=== PATIENT | female | born 1990 | race Caucasian/White ===

== ENCOUNTER → 2017-11-14 17:37 | Outpatient (REF) | payer BC, SELFPAY ==
[2017-11-14 19:56] LABS: Bilirubin Negative (Negative); Blood Negative (Negative); Clarity Clear; Glucose Negative (Negative); Ketones Negative (Negative); Leukocyte Esterase Negative (Negative); Nitrite Negative (Negative); Urobilinogen 0.2 EU/dL (Up TO 0.2)
[2017-11-14 21:09] LABS: Bacteria Negative HPF (Negative); C & S Indicated? No; Casts Negative LPF (Negative); Crystals Negative HPF (Negative); Epithelial Cells Few HPF (Negative); Mucus Negative (Negative); Other Cells Negative (Negative); RBC 0-2 (0-2); WBC 0-2 HPF (0-5)
== END ==
LOC: NCHCN 17:37
PROVIDERS: PCP Family Medicine; Visit Provider Family Medicine
DX: R30.9 Painful micturition, unspecified (principal)
CPT/HCPCS: 81003; 81015

== ENCOUNTER 2019-04-18 14:24 | Outpatient (CLI) | payer OTHER, BC, SELFPAY ==
--- NOTE | 2019-04-18 14:30 | DI.RAD_ITS ---
EXAM: XR TOE LT GREAT AND XR FOOT LT COMPLETE INDICATION: GREAT TOE PAIN M79.676. COMPARISON: No exams were available for comparison TECHNIQUE: 2D digital imaging was performed. FINDINGS: No fractures seen in the great toe or remainder of the foot. There are no findings to suggest a stre ss fracture. The joint spaces are well maintained. There is incidental spurring at the dorsal aspec t of the navicular. IMPRESSION: Negative left foot and left great toe.
[2019-04-18 15:37] LABS: HCT 34.1 % (36.0-46.0); HGB 11.1 g/dL (12.0-15.5); Mean Corp. HGB Concentration 32.6 g/dL (32.0-36.0); Mean Corpuscular Hemoglobin 26.4 pg (27.0-33.0); Mean Platelet Volume 10.5 fL (8.0-11.0); Platelet Count 232 x1000/uL (130-400); RBC 4.21 m/cumm (4.00-5.20); RBC Distribution Width 13.5 % (11.7-14.6); White Blood Cell Count 9.34 k/cumm (4.4-10.8)
[2019-04-18 15:49] LABS: C-Reactive Protein 9.01 mg/dL (0.0-0.3)
== END 2019-04-18 14:44 ==
PROVIDERS: PCP Family Medicine; Visit Provider Nurse Practitioner Family
DX: M79.672 Pain in left foot (principal); M79.675 Pain in left toe(s)
CPT/HCPCS: 36415; 85027; 73630; 73660; 84550; 86140

== ENCOUNTER 2019-06-04 01:25 | Outpatient (CLI) | payer OTHER, BC, SELFPAY ==
--- NOTE | 2019-06-04 | DI.MRI_ITS ---
EXAM: MR LOWER EXTREMITY LT WO CLINICAL HISTORY: PAIN AND SWELLING X 4 WEEKS, 1ST MPJ LT FOOT, TIBIAL SESAMOID FX,? Infection or go ut TECHNIQUE: Multiplanar multisequence MRI was performed. COMPARISON: XR TOE LT GREAT from 04/18/2019 FINDINGS: Bones: There is hyperintense signal on the T2 weighted images in the 1st metatarsal, the 1st proximal phalanx and both sesamoids. There is a bipartite medial sesamoid. The proximal pole is predominant ly low signal intensity. Joints: There is a large effusion at the 1st metatarsophalangeal joint. Tendons: Visualized tendons are intact. Soft tissues: No focal fluid collection is seen to suggest an abscess. There is edema seen in the so ft tissues around the great toe. There is mild edema in the adjacent muscles on the plantar surface of the toe. IMPRESSION: 1. Soft tissue edema and joint effusion at the 1st metatarsophalangeal joint. A septic joint cannot be excluded. 2. Marrow edema seen in the sesamoids, 1st metatarsal and proximal phalanx of the great toe, this may be reactive. Infection cannot be totally excluded. 3. Hypointense signal seen in the proximal pole of the bipartite medial sesamoid. Avascular necrosis cannot be excluded. DATA REPOSITORY:
== END 2019-06-04 01:45 ==
PROVIDERS: PCP Family Medicine; Visit Provider Podiatrist
DX: M79.672 Pain in left foot (principal); M79.89 Other specified soft tissue disorders; M25.472 Effusion, left ankle; R60.0 Localized edema
CPT/HCPCS: 85027; 86803; 87340; 87389; 73718; 82728; 82746; 84443; 84550

== ENCOUNTER 2019-09-23 08:26 | Outpatient (CLI) | payer BC, SELFPAY ==
[2019-09-26 02:10] LABS: SARS-CoV-2 RNA Undetected (Undetected); SARS-CoV-2 Specimen Source Nasopharynx
== END 2019-09-23 08:46 ==
PROVIDERS: PCP Family Medicine; Visit Provider Podiatrist
DX: Z11.59 Encounter for screening for other viral diseases (principal)
CPT/HCPCS: U0003

== ENCOUNTER 2019-09-26 08:38 | Day surgery (SDC) | payer OTHER, SELFPAY ==
--- NOTE | 2019-09-26 07:10 | HPE_ITS ---
Date of service: 09/26/19 Time of Service: 07:10 History of Present Illness History of Present Illness Chief Complaint: tibial sesamoid fracture, left Narrative: 29-year-old female who sustained a traumatic fracture of the left tibial sesamoid while at work. Nonoperative treatments have failed to resolve the current problem and she is being brought to the OR for exploration and removal of the tibial sesamoid left foot. [facility] Medical History Abnormal hepatitis serology (Acute) Acne vulgaris (Acute) Acute adjustment disorder with depressed mood (Acute) Anxiety with depression (Acute) Chronic interstitial cystitis Cocaine abuse (Acute) 2-3 years ago last use Depression Encounter for annual physical exam (Acute) Fatigue (Acute) Folic acid deficiency (Acute) Hand swelling (Acute) Hepatitis C (Chronic) Pt. denies having this, and has tried to get it taken off your record because she says she has never had it Irregular menses (Acute) Irritable bowel syndrome (Chronic) denies having this dx and would like it removed from her record Lack of libido (Acute) Migraine headache (Chronic) Opioid type dependence, abuse (Acute) Vasculitis (Acute) Surgical History Tonsillectomy Family History Other Diabetes Social History (Updated 09/10/19 @ 10:57 by Beverley Dugan RN) Smoking/Tobacco Use Status: Former Tobacco Use Quit Date: 04/02/17 Alcohol Intake: current Alcohol Intake frequency: holidays/special occasions only Alcohol type: wine Drug use: Current Sobriety Substance use type: crack/cocaine and opiates Details: states she has not used in 2-3 years Number of Children: 0 Current gender identity: female Do you feel safe at home: Yes Do you feel safe in your relationship?: Yes Meds Home Medications and Allergies Home Medications Medication Instructions Recorded Confirmed Type levonorgestrel-ethinyl estrad 1 ea PO DAILY #1 pack 05/19/13 09/23/19 History [Savanah] buprenorphine 8 mg-naloxone 2 mg 1 film SL DAILY 02/05/18 09/23/19 History sublingual film lactobacillus combination no.4 3 3,000 mmu cells PO DAILY 02/05/18 09/23/19 History billion cell capsule phenazopyridine 200 mg tablet 200 mg PO TID 02/05/18 09/23/19 History doxycycline hyclate 20 mg tablet 20 mg PO DAILY tab 09/10/19 09/23/19 History eletriptan [Relpax] 40 mg PO PRN PRN 09/23/19 09/23/19 History Allergies Allergy/AdvReac Type Severity Reaction Status Date / Time No Known Drug Allergies Allergy Verified 09/23/19 14:48 Exam Narrative Exam Narrative: Head is normocephalic Eyes PERRLA Hearing is adequate Uvular is midline, airway looks assessable Heart had regular rate and rhythm without gallops rubs or murmurs appreciated Lung christopher were clear Abdomen was soft, bowel sounds x4, obese Peripheral pulses are manually palpable at the ankles graded 2 out of 4 bilaterally. Capillary refills under 3 seconds to all toes. Muscle groups 5 out of 5 bilaterally Skeletal exam is remarkable for pain with palpation tibial sesamoid left first MPJ. Neurological exam she appeared grossly intact Impression: Left tibial sesamoid disruption Plan:? Being brought to the OR for exploration and resection of the tibial sesamoid left foot. Risk and complications have been disclosed including the potential for pain, scarring, infection, hallux valgus creation due to the imbalance having remove the tibial sesamoid, floating of the great toe, and lack of great toe purchase. The potential for ongoing discomfort as well as reactions such as regional complex pain syndrome. No guarantees have been provided, all questions have been answered in detail. Informed consent has been obtained. COVID-19 Screening In the past 14 days, have you traveled outside of [place]?: NO
[2019-09-26 08:51] VITALS: BP 124/72; PULSE 84; RESP 18; TEMP 36.6; O2SAT 100
--- NOTE | 2019-09-26 09:02 | NUR.NOTE ---
Nursing Note: Pt. currently on suboxone. Pt. reporting she would like opiates for post surgical pain mgmt and had discussed it with outpatient provider. Pt. signed opiate consent. Pt. directed to discuss with Dr. Bauer.
[2019-09-26] MEDS: Midazolam/Ketamine/Ondansetron (3/25/2MG) 1 TAB 1 EACH SL (09:50)
[2019-09-26] MEDS: ceFAZolin 1,000 MG VIAL 2000 MG IM (13:22)
[2019-09-26] MEDS: Bupivacaine 0.5% Pres-Free 30 ML VIAL (13:29)
--- NOTE | 2019-09-26 13:40 | NUR.NOTE ---
Nursing Note: IV access not successful utilizing US and anesthesia team. Ancef 2gms given IM per MD Bauer. IM Ancef to left glute. Pt. tolerated procedure well AEB talking w/this RN. APPRENTICE INSTRUMENT TECHNICIAN wheeled Pt. to OR.
[2019-09-26] MEDS: ceFAZolin 1,000 MG VIAL 1000 MG (13:47)
--- NOTE | 2019-09-26 14:00 | BONE_PTH ---
PATIENT: Julisa Mayo LOC: [facility] U#:[id number] AGE/SX: 29/F ROOM: RE09/26/[address]: Maxim Bauer : 1990 BED: DIS: 09/26/2019 SPEC #: [id number] RECD: 09/26/19 16:50 STATUS: THERON RERodrigo #: [id number] GRACIELA: 09/26/19 14:[address]: Maxim Bauer DEPT: Surgical Specimen RECD BY: Karla Talbert ENTERED: 09/26/19 16:51 SP TYPE: Bone OTHR DR: Marcai Hogan Tissues: 1 - BONE BX/CURRETTE NOT PATH FRACTURE Procedures: GROSS AND MICRO LEVEL 3 DECALCIFICATION Comments: [id number]
--- NOTE | 2019-09-26 14:15 | DI.RAD_ITS ---
EXAM: XR FOOT LT COMPLETE CLINICAL HISTORY: LEFT SESAMOID COMPARISON: No exams were available for comparison FINDINGS: C-arm fluoroscopy was utilized by Dr. Bauer. Please see Dr. Bauer's procedure note. Fluoro time, 3.1 seconds. IMPRESSION:
--- NOTE | 2019-09-26 15:04 | W.PM.DSUDISC ---
Discharge Plan Disposition Patient Disposition: HOME Condition: Good Discharge Details Reason For Visit: Exploration, excision tibial sesamoid left foot Attending Provider: Maxim Bauer Primary Care Provider: Marcia Hogan Home Meds and New Rx's Prescriptions: New ibuprofen 600 mg tablet 600 mg PO QID Qty: 60 RF: 1 hydrocodone-acetaminophen [Ventura] 5-325 mg tablet 1 tab PO Q6H PRNQty: 7 RF: 0 Continued phenazopyridine 200 mg tablet 200 mg PO TID RF: 0 buprenorphine-naloxone [Suboxone] 8-2 mg film 1 film SL DAILY RF: 0 doxycycline hyclate 20 mg tablet 20 mg PO DAILY RF: 0 levonorgestrel-ethinyl estrad [Savanah 28] 1 EACH tablet 1 ea PO DAILY Qty: 1 RF: 12 eletriptan [Relpax] 40 mg tablet 40 mg PO PRN PRNRF: 0 Discharge Instructions Activity:: Elevate Remove Dressings/Wound Care:: Do Not Remove Shower/Bathe:: Cover Diet:: Normal Diet Discharge Orders Discharge Orders: Discharge Order (Routine); Ordered 09/26/19 Ordered By: Maxim Bauer DS: Diagnosis Discharge Diagnosis (1) Fracture of sesamoid bone of foot, closed: Status: Acute
--- NOTE | 2019-09-26 15:08 | ROE_ITS ---
Date of service: 09/26/19 Time of Service: 15:08 Operative Note Operative Note DATE OF PROCEDURE: 09/26/19 PRE-OP DIAGNOSIS: Tibial sesamoid fracture left foot POST-OP DIAGNOSIS: same PROCEDURE: Exploration with tibial sesamoidectomy left foot SURGEON: Maxim Bauer ANESTHESIA: local ESTIMATED BLOOD LOSS: 5 PATHOLOGY: other COMPLICATIONS: None Patient was transported to: same day Patient's condition: stable Indications: 29-year-old female with work-related injury to the tibial sesamoid left foot which failed to respond to nonoperative measures. Julisa is being brought to the OR for exploration and excision of the fractured sesamoid. She understands risk and complications of surgery pertaining to pain, scarring, infection, hallux valgus formation due to the surgical absence of the tibial sesamoid, ongoing pain potentially regional complex syndrome formation. All questions have been answered informed consents been obtained no promises made to the final outcome of surgery. Procedure Description: Julisa is brought to the operative suite placed in the supine position with a left foot prepped and draped in the usual sterile podiatric fashion. Timeout was performed in standard fashion. Local anesthesia was utilized to afford a first ray block starting with 10 cc of a 50: 50 mixture, 1% lidocaine with epinephrine, 0.5% Marcaine plain. She was subsequently augmented with an additional 10 cc of the same mixture. Excellent anesthesia was obtained. A 3 cm incision was placed at the thin thick skin mar gin along the medial aspect of her left first MPJ. The incision was deepened in controlled depth fashion with hemostasis acquired through electrocautery. Dissection was carried down to the joint capsule. With finger palpation I was able to palpate the joint capsule medially as well as the tibial sesamoid. Inspection at this level failed to reveal any pathology there was no instability at the first MPJ with range of motion distraction. With a #15 scalpel I opened the joint capsule medially just above the palpable sesamoid. Was a fair amount of synovial type fluid that came from this region upon incision and cultures both anaerobic and anaerobic were obtained. The fluid did not look purulent but did appear somewhat inflamed. A section was further performed opening the joint capsule and the sesamoid appeared to be a little more distal than I would have expected this bony fragment was dissected free of the surrounding tissue and the underlying flexor tendon was intact. Patient was able to plantarflex and dorsiflex her toe anatomically. Based on previous radiographs I had expected to find a second fragment but I was unable to locate this fragment. I did take a Intra-Op x-ray and the fragment was not readily visible to me. Soft tissue exploration was performed and no additional pathologic findings were noted. The wound was copiously irrigated with normal saline. The joint capsule was closed meticulously with simple interrupted suture 3-0 Vicryl. The subcutaneous layer was repaired with simple interrupted suture 3-0 Vicryl. The skin was then coapted with a combination of horizontal and simple suture of 4-0 nylon. 4 mg of dexamethasone phosphate was infused deeply into the wound. Xeroform gauze fluff compression dressings were applied. Estimated blood loss was under 5 cc. Julisa left the OR with vital signs stable vascular status intact will be followed by myself in the office next week.
== END 2019-09-26 15:40 | disposition home or self-care (01) ==
PROVIDERS: PCP Family Medicine; Visit Provider Podiatrist
PROC: (CPT 28315; principal; 2019-09-26 10:45)
DX: S92.812A Other fracture of left foot, initial encounter for closed fracture (principal); X58.XXXA Exposure to other specified factors, initial encounter; Y99.0 Civilian activity done for income or pay
CPT/HCPCS: 28315; 87077; NC; 73630; 87070; 87075; 87186; 87205; 88304; 88311; J0690; J2001

== ENCOUNTER 2019-11-26 19:10 | Outpatient (REF) | payer BC, SELFPAY ==
[2019-11-29 01:25] LABS: SARS-CoV-2 RNA Undetected (Undetected); SARS-CoV-2 Specimen Source Nasopharynx
== END 2019-11-26 19:30 ==
LOC: NCHCN 19:10
PROVIDERS: PCP Family Medicine; Visit Provider Nurse Practitioner Family
DX: Z20.828 Contact with and (suspected) exposure to other viral communicable diseases (principal)
CPT/HCPCS: U0003

== ENCOUNTER 2019-12-10 02:24 | Outpatient (CLI) | payer BC, SELFPAY ==
[2019-12-10 16:18] LABS: Estimated GFR 58.72 (mL/min/1.73m2); Potassium 4.2 mmol/L (3.5-5.1)
== END 2019-12-10 02:44 ==
PROVIDERS: PCP Family Medicine; Visit Provider Physician Assistant
DX: L70.8 Other acne (principal)
CPT/HCPCS: 36415; 85027; 86803; 87340; 87389; 82565; 82728; 82746; 84132; 84443; 84550

== ENCOUNTER 2019-12-24 17:47 | Outpatient (REF) | payer BC, SELFPAY ==
[2019-12-24 18:42] LABS: Anion Gap 12.3 mmol/L (3-11); BUN 14 mg/dL (7-18); CO2 21.7 mmol/L (21.0-32.0); Calcium 9.8 mg/dL (8.5-10.1); Chloride 101 mmol/L (98-107); Glucose 88 mg/dL (74-106); Potassium 4.5 mmol/L (3.5-5.1); Sodium 135 mmol/L (136-145); TSH (W/Ref FT4) 3.03 uIU/mL (0.36-3.74)
== END 2019-12-24 18:07 ==
LOC: NCHCN 17:47
PROVIDERS: PCP Family Medicine; Visit Provider Family Medicine
DX: R63.5 Abnormal weight gain (principal)
CPT/HCPCS: 80048; 84443

== ENCOUNTER 2020-04-05 18:14 | Outpatient (REF) | payer BC, SELFPAY ==
[2020-04-05 19:14] LABS: CREATININE 1.06 mg/dL (0.55-1.02); Ferritin 38 ng/mL (8-252)
== END 2020-04-05 18:34 ==
LOC: LBN 18:14
PROVIDERS: PCP Family Medicine; Visit Provider Physician Assistant
DX: L70.8 Other acne (principal); Z79.899 Other long term (current) drug therapy
CPT/HCPCS: 82565; 82728

== ENCOUNTER 2020-09-29 19:18 | Outpatient (REF) | payer BC, SELFPAY ==
[2020-09-29 20:38] LABS: HCT 36.1 % (36.0-46.0); HGB 11.7 g/dL (11.2-15.7); MCH 28.3 pg (27.0-33.0); MCHC 32.4 % (32.0-36.0); MCV 87.4 fL (80-95); MPV 12.7 fL (8.0-11.0); Platelet Count 270 10^3/uL (130-400); RBC 4.13 10^6/uL (3.93-5.22); RDW 12.3 % (11.7-14.6); RDW-SD 39.1 fL; WBC 7.79 10^3/uL (4.4-10.8)
[2020-09-29 21:26] LABS: Hemoglobin A1C 5.2 % (<5.7)
[2020-09-29 21:28] LABS: ALT 23 U/L (14-59); AST 12 U/L (15-37); Albumin 3.6 g/dL (3.4-5.0); Alkaline Phosphatase 99 U/L (46-116); Anion Gap 11.3 mmol/L (3-11); BUN 14 mg/dL (7-18); Bilirubin, Total 0.2 mg/dL (0.2-1.0); CO2 26.7 mmol/L (21.0-32.0); CREATININE 0.9 mg/dL (0.55-1.02); Chloride 102 mmol/L (98-107); Ferritin 78 ng/mL (8-252); Folate 10.8 ng/mL (8.6-20.0); Glucose 97 mg/dL (74-106); Potassium 4.1 mmol/L (3.5-5.1); Sodium 140 mmol/L (136-145); TSH (W/Ref FT4) 3.73 uIU/mL (0.36-3.74); Total Protein 7.4 g/dL (6.4-8.2); Vitamin B12 301 pg/mL (193-986)
[2020-09-29 22:09] LABS: Bilirubin, Direct 0.1 mg/dL (0.0-0.2)
[2020-10-01 11:22] LABS: Hepatitis B Surface Ag Negative (Negative)
[2020-10-01 11:59] LABS: HIV-1/2 Ag & Ab Screen Negative (Negative)
[2020-10-01 12:40] LABS: Hepatitis C Ab w Rflx HCV PCR Reactive (Negative)
[2020-10-05 08:58] LABS: HCV RNA Qualitative Undetected (Undetected)
== END 2020-09-29 19:19 | disposition home or self-care (01) ==
LOC: NCHCN 19:18
PROVIDERS: PCP Family Medicine; Visit Provider Family Medicine
DX: M79.676 Pain in unspecified toe(s) (principal); D50.9 Iron deficiency anemia, unspecified; F11.20 Opioid dependence, uncomplicated; R63.5 Abnormal weight gain; E53.8 Deficiency of other specified B group vitamins; F32.9 Major depressive disorder, single episode, unspecified; R76.8 Other specified abnormal immunological findings in serum; Z79.899 Other long term (current) drug therapy
CPT/HCPCS: 80048; 80076; 85027; 86803; 87340; 87389; 87522; 82607; 82728; 82746; 83036; 84443

== ENCOUNTER 2021-02-09 17:20 | Outpatient (REF) | payer BC, SELFPAY ==
[2021-02-10 08:17] LABS: Calcium 9.3 mg/dL (8.5-10.1); Glucose 87 mg/dL (74-106)
[2021-02-10 08:18] LABS: Anion Gap 12.7 mmol/L (3-11); BUN 14 mg/dL (7-18); CO2 24.3 mmol/L (21.0-32.0); CREATININE 0.9 mg/dL (0.55-1.02); Chloride 106 mmol/L (98-107); Folate 8.2 ng/mL (8.6-20.0); Potassium 3.9 mmol/L (3.5-5.1); Sodium 143 mmol/L (136-145); TSH (W/Ref FT4) 3.08 uIU/mL (0.36-3.74); Vitamin B12 424 pg/mL (193-986)
== END 2021-02-09 17:21 | disposition home or self-care (01) ==
LOC: NCHCN 17:20
PROVIDERS: PCP Family Medicine; Visit Provider Family Medicine
DX: D50.9 Iron deficiency anemia, unspecified (principal); R63.5 Abnormal weight gain; E53.8 Deficiency of other specified B group vitamins; R60.0 Localized edema
CPT/HCPCS: 80048; 82607; 82746; 84443

== ENCOUNTER 2021-04-06 01:56 | Outpatient (CLI) | payer BC, SELFPAY ==
--- NOTE | 2021-04-06 14:48 | DI.US_ITS ---
APPROVED REPORT EXAM: Comprehensive 2D, Doppler, and color-flow Echocardiogram Patient Location: Out-Patient Claims Representative: Day Andre RDCS (AE) Indications: Bilateral Leg Edema Other Information Study Quality: Good Conclusion Normal left ventricular wall thickness and chamber size. Estimated ejection fraction is 60 to 65%. There are no segmental wall motion abnormalities Normal right ventricular size and systolic function Both atria are normal in size There is no structural or hemodynamically significant valvular disease Normal estimated right ventricular systolic pressure 23 mmHg Wall motion Left Ventricle The left ventricle is normal size. The left ventricular systolic function is normal. The left ventric ular ejection fraction is within the normal range. There is normal left ventricular wall thickness. T here is normal LV segmental wall motion. There is no ventricular septal defect visualized. LVEF is 60 -65%. Right Ventricle The right ventricle is normal size. The right ventricular systolic function is normal. The RVSP is 23 .2 mmHg. Atria The left atrium size is normal. The right atrium size is normal. The interatrial septum is intact wit h no evidence for an atrial septal defect. Aortic Valve The aortic valve is normal in structure. Aortic valve is trileaflet. There is no aortic valvular sten osis. No aortic regurgitation is present. Mitral Valve The mitral valve is normal in structure. No evidence of mitral valve stenosis. Trace mitral regurgita tion. Tricuspid Valve The tricuspid valve is normal in structure. There is no tricuspid valve stenosis. Trace tricuspid reg urgitation. Pulmonic Valve The pulmonary valve is normal in structure. There is no pulmonic valvular stenosis. There is no pulmo aydee valvular regurgitation. Great Vessels The aortic root is normal in size. The ascending aorta is normal in size. IVC is normal in size and c ollapses >50% with inspiration. Pericardium There is no pericardial effusion. 2D Dimensions IVSD d PLAX 0.90 cm F: 0.6-1.0 LV Vol A2C d MOD 152.6 mL LVPW d PLAX 0.90 cm F: 0.6 - 1.0 LV Vol A4C d MOD 114.5 mL LVID d PLAX 4.83 cm F: 3.8 - 5.2 LA vol/ BSA A4C s A-L 18.1 mL/m2 LVDs 3.10 cm F: 2.2 - 3.5 LA Area A4C s MOD 16.05 cm2 Ao Root d 2.82 cm F: 2.7 - 3.3 LV EF A4C MOD 68.1 % RA Area A4C 13.15 cm2 LV EF A2C MOD 56.5 % RA Vol/ BSA A4C s A-L 13.3 mL/m2 LV EF Biplane MOD 61.9 % Ao Asc Diam d 2.82 cm F: 2.3 - 3.1 SV 82.55 mL LV EF Teichholz 65.2 % SV Index 35.72 mL/m2 LVEF (Toribio's) 61.89 % F: 54 - 74 LV Volume 95.54 mL F: 46 - 106 LV Volume Index 41.35 mL/m2 F: 29 - 61 LV Vol Biplane MOD 133.4 mL FS 35.70 % M-Mode TAPSE 3.55 cm (M/F) >1.7 LV Diastology MV E' medial 0.116 (>0.07 m/s) E/A Ratio 1.4 LV E/e MED 8.40 (<14) MV E Vmax 0.98 (0.4-1.3 m/s) MV E' lateral 0.171 (>0.1 m/s) MV A Vmax 0.70 (0.4-1.3 m/s) LV E/e LAT 5.70 (<14) MV E/A Ratio 1.37 MV E/E' medial 8.44 MV E/E' lateral 5.72 Aortic Valve LVOT Area 3.37 cm2 AoV Area Vmax 2.64 cm2 LVOT Vmax 1.32 m/s AoV Area/ BSA (Vmax) 1.14 cm2/m2 LVOT Mean Emery. 0.85 m/s JC Mean Emery. 2.49 cm2 LVOT Peak Grad 7.0 mmHg JC Mean Emery. Index 1.08 cm2/m2 LVOT Mean Grad 3.4 mmHg LVOT VTI 0.267 m LVOT Diam s 2.05 cm AoV Vmax 1.68 m/s Velocity Ratio 0.78 AoV Mean Emery. 1.14 m/s AoV Peak Grad 11.3 mmHg LVOT SV 89.90 mL AoV Mean Grad 5.9 mmHg AoV VTI 0.324 m AoV Area VTI 2.78 cm2 AoV Area/ BSA (VTI) 1.20 cm/m2 Mitral Valve MV DT 224 (160-240 msec) MV PHT 65 msec MV Area PHT 3.39 cm2 MV VTI 0.355 m MV Area VTI 2.53 (4.0-6.0 cm2) Pulmonary Valve PV Vmax 1.20 (0.5-1.5 m/s) RVOT Peak Gr. 2.83 mmHg PV Peak Grad 5.8 mmHg RVOT Mean Gr. 1.30 mmHg PV Mean Grad 3.2 mmHg RVOT VTI 0.172 m PV VTI 0.237 m RVOT Vmax 0.84 m/s Tricuspid Valve TR Peak Grad 20.2 mmHg TR Vmax 2.25 m/s RA Pressure 3.00 mmHg RVSP (TR) 23.2 mmHg
== END 2021-04-06 02:16 ==
PROVIDERS: PCP Family Medicine; Visit Provider Family Medicine
DX: R60.0 Localized edema (principal)
CPT/HCPCS: 93306

== ENCOUNTER 2021-07-27 14:39 | Outpatient (REF) | payer BC, SELFPAY ==
--- NOTE | 2021-07-27 13:30 | PAPFT_PTH ---
PATIENT: Julisa Mayo LOC: [facility] U#:[id number] AGE/SX: 31/F ROOM: RE07/27/[address]: Lavonne Murdock NP : 1990 BED: DIS: 07/27/2021 SPEC #: [id number] RECD: 07/27/21 18:08 STATUS: THERON REQ #: [id number] GRACIELA: 07/27/21 13:[address]: Lavonne Murdock NP DEPT: [facility] Cytology RECD BY: Karla Talbert ENTERED: 07/27/21 18:08 SP TYPE: PAPFT OTHR DR: Marcia Hogan Tissues: 1 - CX/ENDOCX FOR PAP SMEARS Procedures: PAP THIN PREP/[facility] Screening HPV DNA PROBE Comments: [id number] (CHLAMYDIA/GC)
[2021-07-28 14:48] LABS: Chlamydia Result Negative (Negative); GC Result Negative (Negative)
== END 2021-07-27 14:40 | disposition home or self-care (01) ==
LOC: LBN 14:39
PROVIDERS: PCP Family Medicine; Visit Provider Nurse Practitioner Women's Health
DX: Z12.4 Encounter for screening for malignant neoplasm of cervix (principal); Z11.51 Encounter for screening for human papillomavirus (HPV)
CPT/HCPCS: 87491; 87591; 88142; 87624

== ENCOUNTER 2022-06-16 20:11 | Outpatient (REF) | payer MEDICAID, SELFPAY ==
[2022-06-16 19:49] LABS: HCT 38.8 % (36.0-46.0); HGB 13.1 g/dL (11.2-15.7); MCHC 33.8 % (32.0-36.0); MCV 86 fL (80-95); MPV 12.7 fL (8.0-11.0); Platelet Count 176 10^3/uL (130-400); RBC 4.51 10^6/uL (3.93-5.22); RDW 12.8 % (11.7-14.6); RDW-SD 39.9 fL; WBC 4.77 10^3/uL (4.4-10.8)
[2022-06-16 19:53] LABS: C-Reactive Protein 0.78 mg/dL (0.0-0.3)
[2022-06-19 10:10] LABS: IgA 59 mg/dL (85-499)
[2022-06-20 14:50] LABS: Tissue Transglutaminase Ab IgA <1.2 U/mL
[2022-06-22 14:40] LABS: Tissue Transglutaminase Ab IgG 1.7 U/mL
== END 2022-06-16 20:12 | disposition home or self-care (01) ==
LOC: NCHCN 20:11
PROVIDERS: PCP Family Medicine; Visit Provider Family Medicine
DX: D80.1 Nonfamilial hypogammaglobulinemia (principal); R19.7 Diarrhea, unspecified; K62.5 Hemorrhage of anus and rectum; M25.59 Pain in other specified joint; R79.82 Elevated C-reactive protein (CRP)
CPT/HCPCS: 82784; 85027; 83516; 86140

== ENCOUNTER 2022-07-28 13:32 | Outpatient (REF) | payer MEDICAID, SELFPAY ==
[2022-07-28 19:09] LABS: Bilirubin Negative (Negative); Blood Trace-intact (Negative); Clarity Clear (Clear); Glucose Negative (Negative); Ketones Negative (Negative); Leukocyte Esterase Negative (Negative); Nitrite Negative (Negative)
[2022-07-28 19:25] LABS: Bacteria Few HPF (Negative); C & S Indicated? No/Sq. Contamination; Casts Negative LPF (Negative); Crystals Negative HPF (Negative); Epithelial Cells Moderate HPF (Negative); Mucus Negative (Negative); RBC 0-2 HPF (0-2)
== END 2022-07-28 13:33 | disposition home or self-care (01) ==
LOC: NCHCN 13:32
PROVIDERS: PCP Family Medicine; Visit Provider Nurse Practitioner Family
DX: N89.8 Other specified noninflammatory disorders of vagina (principal); R30.0 Dysuria; R39.89 Other symptoms and signs involving the genitourinary system
CPT/HCPCS: 81003; 81015; 87480; 87510; 87660

== ENCOUNTER 2022-08-02 09:19 | Outpatient (CLI) | payer MEDICAID, SELFPAY ==
[2022-08-02 10:09] LABS: Abs Immature Grans 0.02 10^3/uL (0.0-0.06); Absolute Basophil Count 0.04 10^3/uL (0.0-0.2); Absolute Eosinophil Count 0.18 10^3/uL (0.0-0.7); Absolute Lymphocyte Count 1.68 10^3/uL (1.2-3.4); Absolute Monocyte Count 0.44 10^3/uL (0.1-0.8); Absolute Neutrophil Count 3.26 10^3/uL (1.2-6.7); Basophils % 0.7; Eosinophils % 3.2; HCT 37.5 % (36.0-46.0); HGB 12.7 g/dL (11.2-15.7); Immature Grans % 0.4; Lymphocytes % 29.9; MCH 29.5 pg (27.0-33.0); MCHC 33.9 % (32.0-36.0); MCV 87 fL (80-95); MPV 10.5 fL (8.0-11.0); Monocytes % 7.8; Platelet Count 231 10^3/uL (130-400); RBC 4.31 10^6/uL (3.93-5.22); RDW 12.6 % (11.7-14.6); WBC 5.62 10^3/uL (4.4-10.8)
[2022-08-02 10:52] LABS: HCG Quant, Pregnancy 13732 mIU/mL (1-3)
== END 2022-08-02 09:20 | disposition home or self-care (01) ==
LOC: LBO 09:19
PROVIDERS: PCP Family Medicine; Visit Provider Obstetrics & Gynecology
DX: O20.0 Threatened abortion (principal)
CPT/HCPCS: 36415; 86850; 86900; 86901; 84702; 85025

== ENCOUNTER 2022-08-03 01:02 | Outpatient (CLI) | payer MEDICAID, SELFPAY ==
--- NOTE | 2022-08-03 07:15 | DI.US_ITS ---
Exam(s) US OB 1ST TRIMESTER EXAM: US OB 1ST TRIMESTER CLINICAL HISTORY: bleeding in the 1st trimester,threatened ab,O20.0. COMPARISON: US PELVIS TRANSVAG from 07/12/2011 TECHNIQUE: Transabdominal Transvaginal first trimester obstetrical ultrasound performed. FINDINGS: There is an intrauterine gestational sac. The mean sac diameter is 9.8 mm. There is a yolk sac present with a diameter of 4.4 mm. No pole or heart rate is identified. The uterus measures 8.8 cm long by 3.9 cm AP x 5.3 cm transverse. There is a small subchorionic hemo rrhage. The right ovary measures 2.7 x 2.7 x 1.5 cm. The right ovary is grossly unremarkable. The left ovary was not on this examination. No left adnexal mass is seen. IMPRESSION: Intrauterine gestation with a yolk sac. pole and heart rate are not definitely visualized. Th is may represent an early gestation. Please correlate with patient's beta HCG level. A nonviable pr egnancy cannot be entirely excluded depending on the beta HCG levels and LMP. DATA REPOSITORY:
== END 2022-08-03 01:22 ==
LOC: DI 01:02
PROVIDERS: PCP Family Medicine; Visit Provider Obstetrics & Gynecology
DX: K25.0 Acute gastric ulcer with hemorrhage (principal); O20.0 Threatened abortion
CPT/HCPCS: 76801

== ENCOUNTER 2022-08-09 01:08 | Outpatient (CLI) | payer MEDICAID, SELFPAY ==
--- NOTE | 2022-08-09 07:30 | DI.US_ITS ---
Exam(s) US OB 1ST TRIMESTER EXAM: US OB 1ST TRIMESTER CLINICAL HISTORY: viability,threatened ab,O20.0,? early vs nvp. COMPARISON: US US OB 1ST TRIMESTER from 08/03/2022 TECHNIQUE: Transabdominal Transvaginal first trimester obstetrical ultrasound performed. FINDINGS: A gestational sac is no longer seen. The endometrial stripe measures 8 millimeters. No fluid or hem orrhage seen within the endometrial stripe. Pelvic Measurments Uterus: 8.3 x 4.6 x 6.4 cm Rt Ovary: 2.3 x 1.0 x 1.3 cm cm Lt Ovary: 2.9 x 1.2 x 1.4 cm. Cm IMPRESSION: Previously noted gestational sac is no longer seen, consistent with spontaneous . DATA REPOSITORY:
== END 2022-08-09 01:28 ==
LOC: DI 01:08
PROVIDERS: PCP Family Medicine; Visit Provider Obstetrics & Gynecology
DX: O03.9 Complete or unspecified spontaneous abortion without complication (principal)
CPT/HCPCS: 76801

== ENCOUNTER 2022-08-18 16:01 | Outpatient (REF) | payer MEDICAID, SELFPAY ==
[2022-08-18 18:43] LABS: HCT 36.7 % (36.0-46.0); HGB 12.1 g/dL (11.2-15.7); MCH 28.9 pg (27.0-33.0); MCV 88 fL (80-95); MPV 11.7 fL (8.0-11.0); Platelet Count 261 10^3/uL (130-400); RBC 4.19 10^6/uL (3.93-5.22); RDW 12.5 % (11.7-14.6); RDW-SD 39.9 fL
[2022-08-18 19:07] LABS: ALT 23 U/L (14-59); AST 13 U/L (15-37); Albumin 3.7 g/dL (3.4-5.0); Alkaline Phosphatase 106 U/L (46-116); Anion Gap 9.6 mmol/L (3-11); BUN 12 mg/dL (7-18); Bilirubin, Total 0.2 mg/dL (0.2-1.0); CO2 25.4 mmol/L (21.0-32.0); CREATININE 0.8 mg/dL (0.55-1.02); Calcium 9.1 mg/dL (8.5-10.1); Chloride 108 mmol/L (98-107); Estimated GFR 100.33 (mL/min/1.73m2); Glucose 112 mg/dL (74-106); HCG Quant, Pregnancy 16 mIU/mL (1-3); Potassium 3.9 mmol/L (3.5-5.1); Sodium 143 mmol/L (136-145); TSH (W/Ref FT4) 1.36 uIU/mL (0.36-3.74); Total Protein 6.9 g/dL (6.4-8.2)
[2022-08-18 19:52] LABS: NT-proBNP 146 pg/mL (<300)
== END 2022-08-18 16:02 | disposition home or self-care (01) ==
LOC: NCHCN 16:01
PROVIDERS: PCP Family Medicine; Visit Provider Family Medicine
DX: O03.9 Complete or unspecified spontaneous abortion without complication (principal); R60.0 Localized edema
CPT/HCPCS: 80053; 85027; 83880; 84443; 84702

== ENCOUNTER 2022-10-31 15:43 | Outpatient (REF) | payer OTHER, SELFPAY | END 2022-10-31 15:44 | disposition home or self-care (01) | LOC: LBN 15:43 | PROVIDERS: PCP Family Medicine; Visit Provider Physician Assistant Medical | DX: T14.8XXA Other injury of unspecified body region, initial encounter (principal); B95.0 Streptococcus, group A, as the cause of diseases classified elsewhere | CPT/HCPCS: 87077; 87070; 87186; 87205 ==

== ENCOUNTER 2022-11-13 13:31 | Outpatient (CLI) | payer OTHER, SELFPAY ==
[2022-11-13 12:56] LABS: ESR 24 mm/hr (0-20)
[2022-11-13 13:14] LABS: C-Reactive Protein 1.63 mg/dL (0.0-0.3)
== END 2022-11-13 13:32 | disposition home or self-care (01) ==
LOC: LBO 13:36
PROVIDERS: Obstetrics & Gynecology; PCP Family Medicine; Visit Provider Family Medicine
DX: L03.115 Cellulitis of right lower limb (principal)
CPT/HCPCS: 36415; 85652; 86850; 86900; 86901; 84702; 86140

== ENCOUNTER 2022-12-15 02:57 | Outpatient (CLI) | payer OTHER, SELFPAY ==
--- OUTSIDE RECORDS SUMMARY | 2022-12-15 02:58 | XMS_ITS | Continuity of Care Document ---
Author Name Unknown Organization [facility] Ambulatory Clinics Address [address] [place] [address] Care Team Providers Care Motorsports Technician Name Role Phone GAIL THURMAN Primary Care Physician Encounter [facility] FIN NBR [id number] Date(s): 08/11/22 - 08/11/22 [facility] Ambulatory Clinics [address], [place] [address] Discharge Disposition: Home Allergies, Adverse Reactions, Alerts No Known Medication Allergies Assessment and Plan Future Appointments Medications buprenorphine-naloxone 4 mg-1 mg sublingual film 1 film, SL, Daily, dissolve under the tongue, 0 Refill(s) Start Date: 07/31/22 Status: Ordered clindamycin-benzoyl peroxide 1%-5% topical gel 1 raul, Topical, BID, # 25 g, 0 Refill(s) Start Date: 07/31/22 Status: Ordered cloNIDine 0.1 mg oral tablet 0.1 mg = 1 tab, Oral, BID, # 60 tab, 0 Refill(s) Start Date: 07/31/22 Status: Ordered ferrous sulfate 325 mg (65 mg elemental iron) oral delayed release tablet 325 mg = 1 tab, Oral, Daily, # 30 tab, 0 Refill(s) Start Date: 07/31/22 Status: Ordered FLUoxetine 40 mg oral capsule 40 mg = 1 cap, Oral, Daily, # 30 cap, 0 Refill(s) Start Date: 07/31/22 Status: Ordered folic acid 1 mg oral tablet 1 mg = 1 tab, Oral, Daily, # 30 tab, 0 Refill(s) Start Date: 07/31/22 Status: Ordered furosemide 20 mg oral tablet 20 mg = 1 tab, Oral, Daily, # 30 tab, 0 Refill(s) Start Date: 07/31/22 Status: Ordered minocycline 100 mg oral capsule 100 mg = 1 cap, Oral, every 12 hr, # 14 cap, 0 Refill(s) Start Date: 07/31/22 Stop Date: 08/07/22 Status: Ordered phenazopyridine 200 mg oral tablet 200 mg = 1 tab, Oral, BID, # 4 tab, 0 Refill(s) Start Date: 07/31/22 Stop Date: 08/02/22 Status: Ordered Relpax 40 mg oral tablet 40 mg = 1 tab, Oral, Daily, PRN as needed for migraine headache, may repeat dose once in 2 hours, #6 tab, 0 Refill(s) Start Date: 07/31/22 Status: Ordered Sprintec 0.25 mg-35 mcg oral tablet 1 tab, Oral, Daily, # 28 tab, 0 Refill(s) Start Date: 07/31/22 Status: Ordered Topamax 100 mg oral tablet 100 mg = 1 tab, Oral, Daily, # 90 tab, 0 Refill(s) Start Date: 07/31/22 Status: Ordered tretinoin 0.1% topical cream 1 raul, Topical, every day at bedtime, # 20 g, 0 Refill(s) Start Date: 07/31/22 Status: Ordered triamcinolone 0.1% topical ointment 1 raul, Topical, BID, # 15 g, 0 Refill(s) Start Date: 07/31/22 Stop Date: 08/14/22 Status: Ordered Vitamin B12 1000 mcg oral tablet 1,000 mcg = 1 tab, Oral, Daily, # 30 tab, 0 Refill(s) Start Date: 07/31/22 Status: Ordered Problem List Condition Confirmation Course Effective Dates Status Health St atus Informant Acne vulgaris Confirmed Active Allergic rhinitis Confirmed Active Anxiety Confirmed Active Avascular necrosis Confirmed Active Blood transfusion Confirmed Active Cocaine abuse Confirmed Active Constipation Confirmed Active Cystitis Confirmed Active Depression Confirmed Active Diarrhea Confirmed Active Edema of both lower limbs Confirmed Active Folic acid deficiency Confirmed Active Hemorrhoid Confirmed Active Joint pain Confirmed Active Migraine Confirmed Active Morbid obesity Confirmed Active Opioid dependence Confirmed Active Rectal bleeding Confirmed Active Procedures Procedure Date Related Diagnosis Body Site Status Foot class 1 Completed 1Bone removed in left foot Social History Social History Type Response Tobacco Former tobacco user Tobacco Use:. Sex Patient Care team information Care Team Personnel Name: GAIL THURMAN Position: No Access Member Role: Primary Care Physician Address: Address: [address] [place], [place] [id number]
[2022-12-15 16:26] LABS: Panorama Kit Sent via Fed Ex
[2022-12-15 16:37] LABS: Abs Immature Grans 0.01 10^3/uL (0.0-0.06); Absolute Basophil Count 0.03 10^3/uL (0.0-0.2); Absolute Eosinophil Count 0.19 10^3/uL (0.0-0.7); Absolute Lymphocyte Count 1.57 10^3/uL (1.2-3.4); Absolute Monocyte Count 0.33 10^3/uL (0.1-0.8); Absolute Neutrophil Count 3.21 10^3/uL (1.2-6.7); Basophils % 0.6; Eosinophils % 3.6; HGB 11.1 g/dL (11.2-15.7); Immature Grans % 0.2; Lymphocytes % 29.4; MCH 28.7 pg (27.0-33.0); MCHC 33.6 % (32.0-36.0); MCV 85 fL (80-95); MPV 11.4 fL (8.0-11.0); Monocytes % 6.2; Platelet Count 199 10^3/uL (130-400); RBC 3.87 10^6/uL (3.93-5.22); RDW 12.9 % (11.7-14.6); RDW-SD 39.5 fL; WBC 5.34 10^3/uL (4.4-10.8)
[2022-12-15 16:52] LABS: Glucose,1 Hr (Glucola) 121 mg/dL (80-140)
[2022-12-15 17:26] LABS: TSH (W/Ref FT4) 2.51 uIU/mL (0.36-3.74)
[2022-12-17 13:35] LABS: HIV-1/2 Ag & Ab Screen Negative (Negative)
[2022-12-18 10:09] LABS: Hepatitis B Surface Ag Negative (Negative)
[2022-12-18 11:12] LABS: Rubella IgG Ab (UVM) Positive (See Note); Varicella IgG Antibody Positive (See Note)
[2022-12-18 13:02] LABS: Hepatitis C Ab w Rflx HCV PCR Reactive (Negative)
[2022-12-19 12:16] LABS: Toxoplasma Ab, IgG Negative (Negative); Toxoplasma Ab, IgM Negative (Negative); Toxoplasma IgG Value <3 IU/mL
[2022-12-19 13:06] LABS: Syphilis IgG w/Reflex Nonreactive (Nonreactive)
[2022-12-20 12:22] LABS: HCV RNA Qualitative Undetected (Undetected)
[2022-12-25 00:46] LABS: Specimen WB Whole Blood
[2022-12-28 10:13] LABS: Result Summary NEGATIVE; Specimen WB Whole Blood
== END 2022-12-15 02:58 | disposition home or self-care (01) ==
LOC: LBO 02:57
PROVIDERS: PCP Family Medicine; Visit Provider Advanced Practice Midwife
DX: Z34.91 Encounter for supervision of normal pregnancy, unspecified, first trimester (principal); Z68.41 Body mass index [BMI] 40.0-44.9, adult
CPT/HCPCS: 36415; 81220; 81222; 81329; 82950; 86787; 86803; 86850; 86900; 86901; 87340; 87389; 87522; 84443; 85025; 86762; 86777; 86778; 86780

== ENCOUNTER 2022-12-15 15:31 | Outpatient (REF) | payer OTHER, SELFPAY ==
[2022-12-15 18:12] LABS: *AMPHETAMINES SCREEN URINE Negative (Negative); *BARBITURATES SCREEN URINE Negative (Negative); *BENZODIAZEPINES SCREEN URINE Negative (Negative); Cannabinoids THC Negative (Negative); Cocaine Screen,Urine Negative (Negative); METHADONE URINE SCREEN Negative (Negative); OPIATES URINE SCREEN Negative (Negative); Tricyclic Antidepressants Negative (Negative)
[2022-12-20 11:16] LABS: Buprenorphine 58.7 ng/mL (Cutoff: 5.0); Norbuprenorphine 290.8 ng/mL (Cutoff: 2.5)
== END 2022-12-15 15:32 | disposition home or self-care (01) ==
LOC: LBN 15:31
PROVIDERS: PCP Family Medicine; Visit Provider Advanced Practice Midwife
DX: Z34.91 Encounter for supervision of normal pregnancy, unspecified, first trimester (principal); Z3A.12 12 weeks gestation of pregnancy
CPT/HCPCS: 80307; 80348; 87491; 87591; 87086

== ENCOUNTER 2023-01-12 15:59 | Outpatient (REF) | payer OTHER, SELFPAY ==
[2023-01-15 13:58] LABS: Chlamydia Result Negative (Negative); GC Result Negative (Negative)
== END 2023-01-12 16:00 | disposition home or self-care (01) ==
LOC: LBN 15:59
PROVIDERS: PCP Family Medicine; Visit Provider Advanced Practice Midwife
DX: Z34.92 Encounter for supervision of normal pregnancy, unspecified, second trimester (principal)
CPT/HCPCS: 87491; 87591

== ENCOUNTER 2023-03-30 03:20 | Outpatient (CLI) | payer OTHER, SELFPAY ==
[2023-03-30 16:26] LABS: HCT 34.3 % (36.0-46.0); MCH 28.7 pg (27.0-33.0); MCHC 32.1 % (32.0-36.0); MCV 90 fL (80-95); MPV 11.5 fL (8.0-11.0); Platelet Count 195 10^3/uL (130-400); RBC 3.83 10^6/uL (3.93-5.22); RDW 13.1 % (11.7-14.6); RDW-SD 42.6 fL; WBC 9.09 10^3/uL (4.4-10.8)
[2023-03-30 16:32] LABS: Glucose,1 Hr (Glucola) 102 mg/dL (80-140)
== END 2023-03-30 03:21 | disposition home or self-care (01) ==
LOC: LBO 03:20
PROVIDERS: PCP Family Medicine; Visit Provider Advanced Practice Midwife
DX: Z34.92 Encounter for supervision of normal pregnancy, unspecified, second trimester (principal); Z3A.27 27 weeks gestation of pregnancy
CPT/HCPCS: 36415; 82950; 85027

== ENCOUNTER → 2023-04-27 00:51 | Outpatient (CLI) | payer OTHER, SELFPAY ==
--- NOTE | 2023-04-27 08:15 | DI.US_ITS ---
Exam(s) US OB MILENA WEIGHT EXAM: US OB MILENA WEIGHT CLINICAL HISTORY: obesity, medication exposure,F11.20,z34.90. TECHNIQUE: Transabdominal obstetrical ultrasound performed. COMPARISON: US US OB 2-3 TRIMESTER from 02/02/2023 FINDINGS:: Number of fetuses: One. position: Vertex, spine anterior. Placental location: Posterior, grade 1. No evidence of previa. BIOMETRIC DATA: BPD: 78mm = 31+2 weeks HC: 294mm = 32+3 weeks AC: 284mm = 32+3 weeks FL: 60 mm = 31+ 0 weeks EFW: 1857 Gms = 68% Composite Age: 31+ 6 weeks JUAN R: 23 June 2023 Heart Rate: 150BPM Amniotic fluid index: 15 cm. Amount of fluid is visually within normal limits. IMPRESSION: size and weight are within the expected range. DATA REPOSITORY:
== END ==
PROVIDERS: PCP Family Medicine; Visit Provider Advanced Practice Midwife
DX: F11.20 Opioid dependence, uncomplicated (principal); Z34.93 Encounter for supervision of normal pregnancy, unspecified, third trimester; Z68.41 Body mass index [BMI] 40.0-44.9, adult
CPT/HCPCS: 76816

== ENCOUNTER 2023-06-08 14:34 | Outpatient (REF) | payer OTHER, SELFPAY | END 2023-06-08 14:35 | disposition home or self-care (01) | LOC: LBN 14:34 | PROVIDERS: PCP Family Medicine; Visit Provider Advanced Practice Midwife | DX: Z34.93 Encounter for supervision of normal pregnancy, unspecified, third trimester (principal); Z3A.37 37 weeks gestation of pregnancy; Z36.85 Encounter for antenatal screening for Streptococcus B | CPT/HCPCS: 87081 ==

== ENCOUNTER 2023-07-06 07:41 | Outpatient (CLI) | payer OTHER, SELFPAY ==
[2023-07-06 14:16] VITALS: BP 123/71; PULSE 83; TEMP 37
[2023-07-06 14:29] VITALS: BP 123/71; PULSE 83
--- NOTE | 2023-07-06 15:42 | W.OBNST ---
Date of service: 07/06/23 Time of Service: 15:42 NST Evaluation Reason for NST Reasons for Nonstress Test: POSTDATES Gestational Age Gestational Age in Weeks and Days: 41 Weeks and 0Days Test and Monitor Explained Test/Monitor Explained: Test Explained, Monitor Explained and Patient Verbalized Understanding Vital Signs Blood Pressure: 123/71 Pulse: 83 Temperature: 98.6 F NST Information Date on Monitor: 07/06/23 Time on Monitor: 14:10 Date off Monitor: 07/06/23 Time off Monitor: 15:00 Total Time on Monitor: 50 NST Interventions: None NST Evaluation Patient States Movement: Present FHR Baseline: 140 Variability: Moderate 6-25 bpm Accelerations: 15x15 Decelerations: None NST Results: Reactive Note Ultrasound Done: MILENA Indication: Other (postdates) Total MILENA: 12.6 Other Pertinent Findings: Heart Rate (140), Presentation (cephalic ROP) and Placental Location (posterior) Coding for MILENA w/NST: Completed Exam. NST Note Note: Cv 1/50% midpelvis, vtx -4, intact membranes IOL booked for 07/10/23 NST Reviewed and Verified by: Lizeth Lynn
[2023-07-06 15:43] VITALS: BP 123/71; PULSE 83; TEMP 37
== END 2023-07-06 15:40 ==
LOC: BCD 07:42 → OBS 14:15
PROVIDERS: PCP Family Medicine; Visit Provider Advanced Practice Midwife
DX: O48.0 Post-term pregnancy (principal); Z3A.41 41 weeks gestation of pregnancy
CPT/HCPCS: 59025

== ENCOUNTER 2023-07-09 08:07 | Inpatient (IN) | payer OTHER, SELFPAY ==
[2023-07-09] VITALS (211 sets, daily range): BP systolic 110–156; BP diastolic 56–97; PULSE 0–109; RESP 16–18; TEMP 36.3–36.8; O2SAT 96–99; BMI 47.1
--- NOTE | 2023-07-09 09:39 | ANES.PREOP_ITS ---
General Info Date of Service Date Performed: 07/09/23 Height: 5 ft 8 in Weight: 140.614 kg Body Mass Index (BMI): 47.1 Meds Allergies and Home Medications Allergies Allergy/AdvReac Type Severity Reaction Status Date / Time No Known Drug Allergies Allergy Other (See Verified 06/29/23 13:54 Comment) Home Medication Medication Instructions Recorded fluoxetine 40 mg capsule 40 mg PO DAILY 07/27/21 inulin 2.5 gram chewable tablet g PO 12/01/22 vitamins no.119-iron tab PO 12/01/22 fumarate 29 mg-folic acid 1 mg tablet aspirin 81 mg tablet,delayed 81 mg PO DAILY #90 tabs 12/18/22 release buprenorphine 8 mg-naloxone 2 mg 1 film buccal DAILY 05/25/23 sublingual film ferrous sulfate 325 mg (65 mg 325 mg PO DAILY #60 tabs 06/08/23 iron) tablet eletriptan 40 mg tablet mg 07/09/23 miconazole nitrate 2 % vaginal vaginal 07/09/23 cream vitamin with calcium tab 07/09/23 no.72-iron 27 mg-folic acid 1 mg tablet (M-Gerhard Plus) Current Visit Medications: Current Medications Generic Name Dose Route Start Last Admin Trade Name Freq PRN Reason Stop Dose Admin Ringer's Solution 1,000 mls @ 200 mls/hr 07/09/23 09:15 IV INFUSION [facility] IV Miscellaneous Supplies 1 each 07/09/23 08:15 Iv Access IV DIRECTED [facility] Misoprostol 25 mcg 07/09/23 10:00 Misoprostol 25 Mcg Tab PO Q4H DEDRICK Sodium Chloride 0 ml 07/09/23 08:07 Normal Saline Flush 10 Ml Syr IVP PRN PRN Sodium Chloride 0 ml 07/09/23 08:30 Normal Saline Flush 10 Ml Syr IVP BID DEDRICK Sodium Chloride 0 ml 07/09/23 08:07 Normal Saline 10 Ml Vial IJ DIRECTED PRN Terbutaline Sulfate 0.25 mg 07/09/23 09:06 Terbutaline 1 Mg/Ml Vial SC PRN PRN Zolpidem Tartrate 10 mg 07/09/23 21:00 Zolpidem 5 Mg Tab PO 07/10/23 06:00 [address] [facility] Active Problems Active Problems: Problem Status Onset Code Anemia affecting first O99.019 Hepatitis C B19.20 Opioid type dependence, abuse F11.20 BMI 40.0-44.9, adult Z68.41 Z34.90 Difficult intravenous access Z78.9 Medical History Medical History (Updated 06/08/23 @ 14:14 by Lizeth Lynn) Threatened Early stage of SAB (spontaneous ) Fracture of sesamoid bone of foot, closed (~04/2019) Vasculitis Folic acid deficiency Irritable bowel syndrome denies having this dx and would like it removed from her record Hand swelling Abnormal hepatitis serology Migraine headache Cocaine abuse Anxiety with depression Fatigue Acute adjustment disorder with depressed mood Acne vulgaris Encounter for annual physical exam Depression Chronic interstitial cystitis Surgical History Surgical History (Updated 12/15/22 @ 14:18 by Estefany Castellanos CNM) Status post left foot surgery Tonsillectomy Tobacco Smoking/Tobacco Use Status: Former Tobacco Use Alcohol Alcohol Intake: current Alcohol intake frequency: holidays/special occasions only Alcohol type: wine Substance Use Substance use: Current Sobriety Substance use type: former substance user, crack/cocaine and opiates Details: states she has not used in 2-3 years Prental History History 2 2 Para 0 Hx # Term Pregnancies 0 Multiple births 0 Hx # Pregnancies 0 Ectopic pregnancies 0 AB induced 0 Hx Number of Living Children 0 AB spontaneous 1 Past Pregnancies Del. Date GA/Weeks # Preg Succ Route Wgt Sex Labor Lgth Anesth esia Location [facility] 06/14/22 9 No No Delivery Date: 06/14/22 Last Updated by: Estefany Castellanos CNM SAB Vital Signs and Lab Results Vital Signs Most Recent Vital Signs in EMR: Most Recent Vital Signs Temp Pulse Resp BP Pulse Ox 36.5 C 74 16 151/76 H 97 07/09/23 08:56 07/09/23 09:37 07/09/23 08:56 07/09/23 08:56 07/09/23 08:56 Lab Results 07/09/23 09:07 07/09/23 09:08 Blood Type / Crossmatch: 2 No Data to Display Complete Blood Count: 2 No Data to Display Complete Metabolic Panel: 2 No Data to Display Liver Function Panel: 2 No Data to Display Coagulation Panel: 2 No Data to Display Cardiac Panel: 2 No Data to Display Arterial Blood Gas: 2 No Data to Display Venous Blood Gas: 2 No Data to Display Pancreas Panel: 2 No Data to Display Thyroid Panel: 2 No Data to Display Infectious Disease: 2 No Data to Display Blood Cultures: 2 No Data to Display Toxicology Panel: 2 No Data to Display Panel: 2 No Data to Display Imaging and Studies Imaging and Studies Study information below may be from another EMR and interpreted by another provider. Please see original notes in EMR for more complete details. Echocardiogram Summary: Date of Exam: 04/06/21 Sex: F Admission Date: 04/06/21 : 1990 Age: 30 APPROVED REPORT EXAM: Comprehensive 2D, Doppler, and color-flow Echocardiogram Patient Location: Out-Patient Psychological Operations Specialist: Day Andre RDCS (AE) Indications: Bilateral Leg Edema Other Information Study Quality: Good Conclusion Normal left ventricular wall thickness and chamber size. Estimated ejection fraction is 60 to 65%. There are no segmental wall motion abnormalities Normal right ventricular size and systolic function Both atria are normal in size There is no structural or hemodynamically significant valvular disease Normal estimated right ventricular systolic pressure 23 mmHg Anesthesia Assessment and Plan Anesthesia History Personal History: No History of Anesthesia Complications Family History: No Family History of Anesthesia Complications Exercise Tolerance Exercise Tolerance: Metabolic Equivalents>4 Pertinent Negatives Pertinent Negatives: No Major Cardiovascular Symptoms or Complaints, No Major Pulmonary Symptoms or Complaints and No History of CVA/TIA Cardiac & Pulmonary Exam Cardiac Exam: Normal S1/S2 Heart Sounds Pulmonary Exam: Clear Bilateral Breath Sounds Implantable Cardiac Device Does patient have a Pacemaker or an ICD?: No Airway Exam Known Difficult Airway: No Mallampati Class: 1 Mouth Opening: Normal (> 3cm) Thyromental Distance: Greater than 3 cm Neck Range of Motion: Full ROM Neck Circumference: Normal Teeth Condition: Normal Dentition ASA Classification ASA Score: ASA 3 Emergency Case?: No NPO Status NPO Status: NPO Clears >2 hours, Solids >8 hours Status Status: Confirmed Anesthesia Plan Resuscitation Status: Full Code Anesthesia Technique: Spinal Anesthesia Airway Planned: Natural Airway Pain Management: Epidural Monitors Used: Standard Monitors
[2023-07-09] MEDS: miSOPROStol 25 MCG TAB PO (09:48)
[2023-07-09] MEDS: Lactated Ringers 1,000 ML 200 ML IV ×2 (10:00→14:45)
[2023-07-09 10:09] LABS: COMMENT (LAB VIEW ONLY) 172.96 mg/dL; PROTEIN 23.5 mg/dL; Prot/Crea Ur Ratio 0.13
[2023-07-09 10:14] LABS: *AMPHETAMINES SCREEN URINE Negative (Negative); *BARBITURATES SCREEN URINE Negative (Negative); *BENZODIAZEPINES SCREEN URINE Negative (Negative); Cannabinoids THC Negative (Negative); Cocaine Screen,Urine Negative (Negative); METHADONE URINE SCREEN Negative (Negative); OPIATES URINE SCREEN Negative (Negative)
[2023-07-09 10:16] LABS: Tricyclic Antidepressants Negative (Negative)
[2023-07-09 10:19] LABS: HGB 13.4 g/dL (11.2-15.7); MCH 28.8 pg (27.0-33.0); MCHC 33.5 % (32.0-36.0); MCV 86 fL (80-95); RBC 4.65 10^6/uL (3.93-5.22); RDW 14.6 % (11.7-14.6); RDW-SD 46.4 fL
[2023-07-09] MEDS: FentaNYL/ROPIvacaine 2 mcg/ml and 0.1% 200 ML CADD Cassette EP ×2 (10:46→22:17)
--- NOTE | 2023-07-09 11:01 | W.ANESNEU ---
Epidural/Spinal Catheter Date Performed: 07/09/23 Procedure Start: 10:40 Procedure Stop: 11:12 Requesting Provider: Estefany Castellanos Procedure Location: Obstetrics Reason Performed: Labor Epidural Standard Monitors Applied: Blood Pressure, SpO2 and See EMR for corresponding vital signs Patient Position: Sitting Sedation Given (Indicate Dose Given): No Sedation given Patient Mental Status: Awake Sterility: Hand Hygiene, Surgical Cap, Surgical Mask, Sterile Gloves, Sterile Drape/Sheet and Chlorhexidine Procedure Location: L2-L3 Interspace Epidural Needle: Tuohy 18 Gauge Needle Length: 3.5 Inch Needle Approach: Midline Epidural Procedure: Skin Prepped, Sterile Drape Placed, 1% Lidocaine to skin and subcutaneous tissue with 25G needle, Tuohy Needle placed, TYRESE to Saline Used, Epidural Catheter Placed, Negative Heme, Negative CSF Flow and Tuohy Needle Removed Catheter Placed?: Catheter Placed Test Dose (Indicate Dose Given): 3ml 1.5% Lidocaine with 1:200K Epinephrine Given and Negative Test Dose Loss of Resistance Depth (cm): 7 Catheter depth at skin (cm): 13 Dressing: Sorbaview Dressing Placed, Mastisol Used and Dressing reinforced with Tape Epidural Provider Bolus (Indicate Dose Given): Total bolus dose given in 3-5 ml divided doses and Total Ropivacaine 0.1% with Fentanyl 2mcg/ml Given from pump. (ml) Dose:: 5 ml Additives (Indicate Dose Given ): None Infusion Medication: Medication Infusion Began Medication Infusion: Ropivacaine 0.1% with Fentanyl 2mcg/ml Maintenance Infusion Rate (ml/hour): 10 PCEA Bolus Dose (ml): 5 Block Level: N/A Paresthesia: None Ultrasound: Sterile probe cover and gel used Ultrasound Image Saved?: Yes Number of Attempts (See previous attempts in note section): 1 Procedure Tolerated: No Complications and Patient tolerated well Procedure Outcome: Successful Procedure Comment:: Educated on PCEA use. All questions answered. Pt. comfortable. Performed By: Randy Samaniego
--- NOTE | 2023-07-09 11:16 | W.ANESVAS ---
Midline Placement Date Performed: 07/09/23 Procedure Time: 10:20 Requesting Provider: Estefany Castellanos Procedure Location: Obstetrics Sedation Given (Indicate Dose Given): No Sedation given Patient Mental Status: Awake Sterility: Hand Hygiene, Surgical Cap, Surgical Mask and Chlorhexidine Laterality: Left Insertion Site: Basilic Midline Device: PowerGlide Pro 18G Catheter Length: 10 cm Midline Procedure Procedure: 1% Lidocaine to skin and subcutaneous tissue with 25g needle, Vessel accessed with catheter over needle, Guidewire placed with ease and Guidewire removed Dressing: Tegaderm Applied and Statlock Applied Blood Return: Present Flushes: Easily Ultrasound: Sterile probe cover and gel used Ultrasound Image Saved?: Yes Number of Attempts (See previous attempts in note section): 1 Procedure Tolerated: No Complications and Patient tolerated well Procedure Outcome: Successful Performed By: Randy Samaniego
--- NOTE | 2023-07-09 11:26 | W.PM.OBHPL1 ---
Date of service: 07/09/23 Time of Service: 11:27 Assessment and Plan Assessment and plan (1) Spontaneous onset of labor: Status: Acute Assessment and plan: Admit to Center. I reviewed options of therapeutic rest or labor induction with Julisa. She would like to proceed with induction. Comfort measures discussed. Julisa requests epidural analgesia. Anesthesia consultation regarding history of difficult IV stick and pending epidural analgesia, Anticipate . OB-HPI Labor/Delivery History of Present Illness Reason for Visit: NST Chief Complaint: Uterine Contractions; Maternal Discomfort , Associated Signs and Symptoms of Maternal Discomfort: contractions and fatigue. JUAN R Calculator Estimated Delivery Date Method Current WG Current Estimate 06/29/23 Ultrasound #1 41w 3d Other Estimates 06/29/23 LMP (Uncertain) 41w 3d Comments: Julisa began experiencing contractions yesterday and continued to experience them during the night. She complains of fatigue and requests induction of labor and episural analgesia. History of Present Expected Delivery Route/Plan - CNM FOB - [place] (his first) Does not want to know gender until If a boy, no circ. Hopes to avoid an epidural, wants the tub room, accepts IV access during labor GBS negative Specific Issues/Plan 1. Substance use disorder, on suboxone declines [facility] team and or [facility] referral 1a. @ 19wks given Our Care Notebook, pt declines to meet with Jocelyn Young 1a. Declines Family care plan or meeting with Berenice Harry. 2. Obesity, early [id number], 28 week GTT 102, growth US at 32 wks: 68th %ile, MILENA=15 3. Poor IV stick due to history of IV drug use, notify anesthesia (declines, reports she has 2 good sites) 4. Initial OB hgb 11.1, advised oral iron supplementation 4a. Hgb 9.6 @ 37 wks, switch from gummy iron to iron tablets, consider iron infusion @ 39 wk check 5. Hep C reactive, titer is undetectable 6. Start low dose ASA for BMI/Nullip @ 12 wks 7. Panorama, SMA neg, CF neg, declines AFP 8. Tdap given 04/27/23 PFSH All Active Problems (Updated 07/09/23 @ 11:30 by Estefany Victoria CNM) Spontaneous onset of labor (Acute) Anemia affecting first (Acute) Hepatitis C (Chronic) Pt. denies having this, and has tried to get it taken off your record because she says she has never had it Opioid type dependence, abuse (Acute) BMI 40.0-44.9, adult (Acute) (Acute) Difficult intravenous access (Acute) Has required multiple IV attempts with and without ultrasound in the past in arms and feet, sometimes without eventual success. Medical History (Updated 07/09/23 @ 11:30 by Estefany Victoria CNM) Threatened Early stage of SAB (spontaneous ) Fracture of sesamoid bone of foot, closed (~04/2019) Vasculitis Folic acid deficiency Irritable bowel syndrome denies having this dx and would like it removed from her record Hand swelling Abnormal hepatitis serology Migraine headache Cocaine abuse Anxiety with depression Fatigue Acute adjustment disorder with depressed mood Acne vulgaris Encounter for annual physical exam Depression Chronic interstitial cystitis Surgical History (Updated 12/15/22 @ 14:18 by Estefany Castellanos CNM) Status post left foot surgery Tonsillectomy Family History (Updated 12/15/22 @ 14:32 by Estefany Castellanos CNM) Mother Breast cancer Celiac disease Maternal Grandmother Dementia Parkinson disease Maternal Grandfather Dementia Niece Celiac disease Paternal Grandfather Polio Social History Smoking/Tobacco Use Status: Former Tobacco Use Quit Date: 04/02/17 Smoking risk assessment performed?: Yes Alcohol Intake: current Alcohol Intake frequency: holidays/special occasions only Alcohol type: wine Drug use: Current Sobriety Substance use type: former substance user, crack/cocaine and opiates Details: states she has not used in 2-3 years Housing: house Number of Children: 0 Current gender identity: female Do you feel safe at home: Yes Do you feel safe in your relationship?: Yes Female Reproductive History Menstrual Age of Menarche: 10 control method: pills History History 2 Para 0 Hx # Term Pregnancies 0 Multiple births 0 Hx # Pregnancies 0 Ectopic pregnancies 0 AB induced 0 Hx Number of Living Children 0 AB spontaneous 1 Past Pregnancies Del. Date GA/Weeks # Preg Succ Route Wgt Sex Labor Lgth Anesthesia Location Prov Complic 06/14/22 9 No No Delivery Date: 06/14/22 Last Updated by: Estefany Castellanos CNM [facility] Meds Allergies and Home Medications Allergies Allergy/AdvReac Type Severity Reaction Status Date / Time No Known Drug Allergies Allergy Other (See Verified 06/29/23 13:54 Comment) Home Medications Medication Instructions Recorded Confirmed Type fluoxetine 40 mg capsule 40 mg PO DAILY 07/27/21 07/09/23 History inulin 2.5 gram chewable tablet g PO 12/01/22 07/06/23 History vitamins no.119-iron tab PO 12/01/22 07/06/23 History fumarate 29 mg-folic acid 1 mg tablet aspirin 81 mg tablet,delayed 81 mg PO DAILY #90 tabs 12/18/22 07/09/23 Rx release buprenorphine 8 mg-naloxone 2 mg 1 film buccal DAILY 05/25/23 07/09/23 History sublingual film ferrous sulfate 325 mg (65 mg 325 mg PO DAILY #60 tabs 06/08/23 07/09/23 Rx iron) tablet eletriptan 40 mg tablet mg 07/09/23 History miconazole nitrate 2 % vaginal vaginal 07/09/23 History cream vitamin with calcium tab 07/09/23 History no.72-iron 27 mg-folic acid 1 mg tablet (M-Gerhard Plus) Exam Physical Exam Vital signs: Temp Pulse Resp BP Pulse Ox 97.7 F 69 16 121/66 96 07/09/23 08:56 07/09/23 11:25 07/09/23 08:56 07/09/23 11:14 07/09/23 11:25 Vital Signs Reviewed: Yes Constitutional Constitutional: no acute distress Detailed Labor and Delivery Exam Dilation: 1 Effacement (%): 80 station: -1 Cervix position: mid Consistency: medium Salgado Score: Cervical Points Exam 0 1 2 3 Dilation Closed 1-2cm 3-4 cm 5-6cm Effacement 0-30% 40-50% 60-70% 80% Consistency Firm Medium Soft Station -3 -2 -1,0 +1,+2 Position Posterior Mid Anterior SALGADO Score(Cervical Ripeness Score): 8 Amniotic Membrane Status: Intact Monitor Mode: External Contraction Frequency(min): every 2-4 Contraction Duration(sec): 40-60 Contraction Intensity: Mild/Moderate Fetus A Heart Rate Baseline: 140 Monitor Accelerations: 15 X 15 Monitor Decelerations: None Variability: Moderate (6-25 BPM) Presentation: Vertex Categories: Category I Est. Weight: 8 lb HEENT Exam HEENT Exam: Normal Respiratory Exam Respiratory Exam: Normal Cardiovascular Exam Cardiovascular Exam: Normal Abdominal Exam Abdominal Exam: Normal Rectal Exam Rectal Exam: Normal Exam Exam: Normal Extremities Exam Extremities Exam: Normal Skin Exam Skin Exam: Normal Psychiatric Exam Psychiatric Exam: Normal Risk Assessment Risk for Shoulder Dystocia Historical/Initial OB: POSITIVE FOR: Pre- BMI>30; NEGATIVE FOR: Pelvic Abnormality, Previous Shoulder Dystocia or Previous Macrosomia 36 Weeks: NEGATIVE FOR: Current Gestational DM, EFW>4500gms or Maternal Weight Gain>40lbs 40 Weeks: POSTIVE FOR: Post Dates; NEGATIVE FOR: EFW> 4500 gms or Maternal Weight Gain >40lb Increased Risk?: Yes Risk for Pre-Eclampsia Daily Dose ASA Indicated: Yes Yes, if one or more: NEGATIVE FOR: Hx Pre-E/Gest HTN, Chronic HTN, Multiple Gestation, Pre-gestational DM, Renal Disease, Systemic Lupus or APA Syndrome Yes, if 2 or more: POSITIVE FOR: Nulliparity and BMI>30; NEGATIVE FOR: Age>= 35 yrs, >10yr btwn pregnancies, ethinicty, Mother/Sister w/ Pre-E or Previous IUGR Risk for Post- Hemorrhage Initial: NEGATIVE FOR: Multiple Gestation, Previous PPH, Known Clotting Deficiency, Grand Multiparity or Anticoagulation 36 Weeks: NEGATIVE FOR: Anemia, hgb<10, Low platelets(thrombocytopenia), Gestational HTN or Pre-E, Polyhydraminios or EFW>4500gms 40 Weeks: NEGATIVE FOR: Anemia, hgb<10, Low platelets (thrombocytopenia), Gestation HTN or Pre-E, Polyhydraminios or EFW>4500gms At Risk?: No Risks Reviewed Risks Reviewed Upon Admission: Yes
[2023-07-09 13:17] LABS: ALT 17 U/L (14-59); AST 17 U/L (15-37); Albumin 2.6 g/dL (3.4-5.0); Alkaline Phosphatase 174 U/L (46-116); Anion Gap 10.2 mmol/L (3-11); BUN 10 mg/dL (7-18); Bilirubin, Total 0.2 mg/dL (0.2-1.0); CO2 21.8 mmol/L (21.0-32.0); CREATININE 0.6 mg/dL (0.55-1.02); Calcium 9.4 mg/dL (8.5-10.1); Chloride 103 mmol/L (98-107); Estimated GFR 121.47 (mL/min/1.73m2); Glucose 83 mg/dL (74-106); Potassium 4.2 mmol/L (3.5-5.1); Sodium 135 mmol/L (136-145); Total Protein 7.2 g/dL (6.4-8.2); Uric Acid 4.7 mg/dL (2.6-6.0)
--- NOTE | 2023-07-09 13:44 | PGE_ITS ---
Date of service: 07/09/23 Time of Service: 13:44 Informed Consent Informed Consent: Augmentation of Labor and Risk,Benefits,Alternatives Discussed Pelvic Exam Dilation: 2 Effacement (%): 90 station: -1 Cervix Position: mid Consistency: soft Vaginal Exam Presentation: Cephalic Contractions Monitor Mode: External Contraction Frequency(min): every 2-4 Contraction Duration(sec): 40-60 Intensity: Mild/Moderate Fetus A Monitor: External (US) Heart Rate Baseline: 120 Presentation: Vertex Variability: Moderate (6-25 BPM) Categories: Category I FHR Rhythm: Regular Accelerations: 15 X 15 Decelerations: Variable Recurrence: Intermittent Amniotic Membrane Status: Intact Assessment and Plan Assessment and plan (1) Spontaneous onset of labor: Status: Acute Assessment and plan: Discussed pitocin augmentation at this time and Julisa agrees. position changes and peanut ball used. Anticipate . Objective Abnormal lab results 07/09/23 Range/Units 12:35 Sodium 135 L (136-145) mmol/L Alkaline Phosphatase 174 H (46-116) U/L Albumin 2.6 L (3.4-5.0) g/dL Temp Pulse Resp BP Pulse Ox 97.7 F 70 16 130/69 96 07/09/23 08:56 07/09/23 13:41 07/09/23 12:03 07/09/23 13:01 07/09/23 11:45 Laboratory Results WBC 9.80 10^3/uL (4.4-10.8) 07/09/23 09:55 RBC 4.65 10^6/uL (3.93-5.22) 07/09/23 09:55 Hgb 13.4 g/dL (11.2-15.7) 07/09/23 09:55 Hct 40.0 % (36.0-46.0) 07/09/23 09:55 MCV 86 fL (80-95) 07/09/23 09:55 MCH 28.8 pg (27.0-33.0) 07/09/23 09:55 MCHC 33.5 % (32.0-36.0) 07/09/23 09:55 RDW 14.6 % (11.7-14.6) 07/09/23 09:55 Plt Count 10^3/uL (130-400) 07/09/23 09:55 MPV fL (8.0-11.0) 07/09/23 09:55 Sodium 135 mmol/L (136-145) L 07/09/23 12:35 Potassium 4.2 mmol/L (3.5-5.1) 07/09/23 12:35 Chloride 103 mmol/L (98-107) 07/09/23 12:35 Carbon Dioxide 21.8 mmol/L (21.0-32.0) 07/09/23 12:35 Anion Gap 10.2 mmol/L (3-11) 07/09/23 12:35 BUN 10 mg/dL (7-18) 07/09/23 12:35 Creatinine 0.6 mg/dL (0.55-1.02) 07/09/23 12:35 Est GFR (CKD-EPI 2020) 121.47 (mL/min/1.73m2) 07/09/23 12:35 Glucose 83 mg/dL (74-106) 07/09/23 12:35 Uric Acid 4.7 mg/dL (2.6-6.0) 07/09/23 12:35 Calcium 9.4 mg/dL (8.5-10.1) 07/09/23 12:35 Total Bilirubin 0.2 mg/dL (0.2-1.0) 07/09/23 12:35 AST 17 U/L (15-37) 07/09/23 12:35 ALT 17 U/L (14-59) 07/09/23 12:35 Alkaline Phosphatase 174 U/L (46-116) H 07/09/23 12:35 Total Protein 7.2 g/dL (6.4-8.2) 07/09/23 12:35 Albumin 2.6 g/dL (3.4-5.0) L 07/09/23 12:35 Ur Random Creatinine 172.96 mg/dL 07/09/23 08:30 U Random Total Protein 23.5 mg/dL 07/09/23 08:30 U [place] Prot/Creat Ratio 0.13 07/09/23 08:30 Urine Opiates Screen Negative (Negative) 07/09/23 08:30 Urine Methadone Screen Negative (Negative) 07/09/23 08:30 Ur Barbiturates Screen Negative (Negative) 07/09/23 08:30 Ur Tricyclics Screen Negative (Negative) 07/09/23 08:30 Ur Amphetamines Screen Negative (Negative) 07/09/23 08:30 U Benzodiazepines Scrn Negative (Negative) 07/09/23 08:30 Urine Cocaine Screen Negative (Negative) 07/09/23 08:30 Ur THC Screen Negative (Negative) 07/09/23 08:30 Patient ABO/Rh A Positive 07/09/23 09:55 Antibody Screen NEGATIVE 07/09/23 09:55 Subjective Patient Reports: No new Complaints Interval history since last seen: Julisa is resting comfortably with epidural in place. She received an IV bolus of 500 cc due to variable decelerations which has improved the heart rate tracing. She was repositioned on her side. Results Hemoglobin/Hematocrit: Hgb 13.4 g/dL (11.2-15.7) 07/09/23 09:55 Hct 40.0 % (36.0-46.0) 07/09/23 09:55 Abnormal Lab Findings: Abnormal Labs 07/09/23 12:35 Sodium 135 L Alkaline Phosphatase 174 H Albumin 2.6 L
[2023-07-09] MEDS: Oxytocin/Normal Saline 30 UNIT/500 ML BAG 2 UNITS IV (13:59)
--- NOTE | 2023-07-09 19:32 | PGE_ITS ---
Date of service: 07/09/23 Time of Service: 19:32 Informed Consent Informed Consent: Augmentation of Labor and Risk,Benefits,Alternatives Discussed Pelvic Exam Dilation: 3 Effacement (%): 100 station: -1 Cervix Position: mid Consistency: soft Vaginal Exam Presentation: Cephalic Pooling: Positive Comments: AROM performed for a large amount of clear fluid. Contractions Monitor Mode: External Contraction Frequency(min): every 3-4 Contraction Duration(sec): 60 Intensity: Moderate Fetus A Monitor: External (US) Heart Rate Baseline: 130 Presentation: Vertex Variability: Moderate (6-25 BPM) Categories: Category I FHR Rhythm: Regular Accelerations: 15 X 15 Decelerations: Variable Recurrence: Intermittent Amniotic Membrane Status: Ruptured Rupture Method: Artifical Amniotic Fluid: Clear Assessment and Plan Assessment and plan (1) Encounter for induction of labor: Status: Acute Assessment and plan: Randy MEDLEY was notified of patient's discomfort. He is en route to assess her. Anticipate . Dr Calderon was present on the unit earlier and notified of her status. Objective Abnormal lab results 07/09/23 Range/Units 12:35 Sodium 135 L (136-145) mmol/L Alkaline Phosphatase 174 H (46-116) U/L Albumin 2.6 L (3.4-5.0) g/dL Temp Pulse Resp BP Pulse Ox 97.9 F 84 16 123/76 96 07/09/23 17:24 07/09/23 19:31 07/09/23 12:30 07/09/23 19:31 07/09/23 11:45 Laboratory Results WBC 9.80 10^3/uL (4.4-10.8) 07/09/23 09:55 RBC 4.65 10^6/uL (3.93-5.22) 07/09/23 09:55 Hgb 13.4 g/dL (11.2-15.7) 07/09/23 09:55 Hct 40.0 % (36.0-46.0) 07/09/23 09:55 MCV 86 fL (80-95) 07/09/23 09:55 MCH 28.8 pg (27.0-33.0) 07/09/23 09:55 MCHC 33.5 % (32.0-36.0) 07/09/23 09:55 RDW 14.6 % (11.7-14.6) 07/09/23 09:55 Plt Count 10^3/uL (130-400) 07/09/23 09:55 MPV fL (8.0-11.0) 07/09/23 09:55 Sodium 135 mmol/L (136-145) L 07/09/23 12:35 Potassium 4.2 mmol/L (3.5-5.1) 07/09/23 12:35 Chloride 103 mmol/L (98-107) 07/09/23 12:35 Carbon Dioxide 21.8 mmol/L (21.0-32.0) 07/09/23 12:35 Anion Gap 10.2 mmol/L (3-11) 07/09/23 12:35 BUN 10 mg/dL (7-18) 07/09/23 12:35 Creatinine 0.6 mg/dL (0.55-1.02) 07/09/23 12:35 Est GFR (CKD-EPI 2020) 121.47 (mL/min/1.73m2) 07/09/23 12:35 Glucose 83 mg/dL (74-106) 07/09/23 12:35 Uric Acid 4.7 mg/dL (2.6-6.0) 07/09/23 12:35 Calcium 9.4 mg/dL (8.5-10.1) 07/09/23 12:35 Total Bilirubin 0.2 mg/dL (0.2-1.0) 07/09/23 12:35 AST 17 U/L (15-37) 07/09/23 12:35 ALT 17 U/L (14-59) 07/09/23 12:35 Alkaline Phosphatase 174 U/L (46-116) H 07/09/23 12:35 Total Protein 7.2 g/dL (6.4-8.2) 07/09/23 12:35 Albumin 2.6 g/dL (3.4-5.0) L 07/09/23 12:35 Ur Random Creatinine 172.96 mg/dL 07/09/23 08:30 U Random Total Protein 23.5 mg/dL 07/09/23 08:30 U [place] Prot/Creat Ratio 0.13 07/09/23 08:30 Urine Opiates Screen Negative (Negative) 07/09/23 08:30 Urine Methadone Screen Negative (Negative) 07/09/23 08:30 Ur Barbiturates Screen Negative (Negative) 07/09/23 08:30 Ur Tricyclics Screen Negative (Negative) 07/09/23 08:30 Ur Amphetamines Screen Negative (Negative) 07/09/23 08:30 U Benzodiazepines Scrn Negative (Negative) 07/09/23 08:30 Urine Cocaine Screen Negative (Negative) 07/09/23 08:30 Ur THC Screen Negative (Negative) 07/09/23 08:30 Patient ABO/Rh A Positive 07/09/23 09:55 Antibody Screen NEGATIVE 07/09/23 09:55 Subjective Patient Reports: New Complaints Interval history since last seen: Pitocin is at 6 mu/min. AROM performed for clear fluid. The novii was replaced for a better monitoring signal. Julisa is sitting up with the head of the bed high and is experiencing painful contractions. Results Hemoglobin/Hematocrit: Hgb 13.4 g/dL (11.2-15.7) 07/09/23 09:55 Hct 40.0 % (36.0-46.0) 07/09/23 09:55 Abnormal Lab Findings: Abnormal Labs 07/09/23 12:35 Sodium 135 L Alkaline Phosphatase 174 H Albumin 2.6 L
[2023-07-09] MEDS: Lactated Ringers 1,000 ML 125 ML IV (20:00)
--- NOTE | 2023-07-09 21:21 | PDOC.ANES ---
Date of service: 07/09/23 Time of Service: 21:21 Anesthesia Note Report Anesthesia Note: Called to assess the epidural due to increased discomfort. Arrived to find Julisa on the commode. Once in bed she is describing 4-5/10 discomfort that is sharp only in the left lower abdomen/pelvic region. Only pressure everywhere else. Motor is slightly weaker on right, 5/5 on left. I dosed epidural over every 5 minutes 5ml x 3 doses with relief to a 0/10 for sharp pain. Motor unchanged, just right leg feels more numb now. At 2048 I increased infusion to 13ml/hr and PCEA to 7ml. Assessment of catheter showed migration out by 2 cm. Given this, I am hesitant to withdraw the catheter, especially with the risk of migration again. Advised patient to let RN know if hands or fingers experience any numbness or tingling, which she currently denies. All questions answered and patient will attempt to nap.
--- NOTE | 2023-07-09 21:49 | W.PM.OBNL1 ---
Date of service: 07/09/23 Time of Service: 21:49 Informed Consent Informed Consent: Augmentation of Labor and Risk,Benefits,Alternatives Discussed Pelvic Exam Dilation: 4 Effacement (%): 100 station: -1 Cervix Position: mid Consistency: soft Vaginal Exam Presentation: Vertex Contractions Monitor Mode: External Contraction Frequency(min): every 2-3 minutes Contraction Duration(sec): 60 IUPC resting tone (mmHg): 20 IUPC peak pressure (mmHg): 80 IUPC [place] units: 84 Fetus A Monitor: External (US) Heart Rate Baseline: 130 Presentation: Cephalic Variability: Moderate (6-25 BPM) Categories: Category II FHR Rhythm: Regular Accelerations: 15 X 15 Decelerations: Variable Assessment Note: IV bolus after epidural bolus provided. Assessment and Plan Assessment and plan (1) Encounter for induction of labor: Status: Acute Assessment and plan: IUPC placed and will continue to assess labor pattern and progress. Rest encouraged. Will re-examine in 2 hours. Objective Abnormal lab results 07/09/23 Range/Units 12:35 Sodium 135 L (136-145) mmol/L Alkaline Phosphatase 174 H (46-116) U/L Albumin 2.6 L (3.4-5.0) g/dL Temp Pulse Resp BP Pulse Ox 98.2 F 77 16 133/59 L 99 07/09/23 21:00 07/09/23 21:30 07/09/23 21:30 07/09/23 21:30 07/09/23 21:30 Laboratory Results WBC 9.80 10^3/uL (4.4-10.8) 07/09/23 09:55 RBC 4.65 10^6/uL (3.93-5.22) 07/09/23 09:55 Hgb 13.4 g/dL (11.2-15.7) 07/09/23 09:55 Hct 40.0 % (36.0-46.0) 07/09/23 09:55 MCV 86 fL (80-95) 07/09/23 09:55 MCH 28.8 pg (27.0-33.0) 07/09/23 09:55 MCHC 33.5 % (32.0-36.0) 07/09/23 09:55 RDW 14.6 % (11.7-14.6) 07/09/23 09:55 Plt Count 10^3/uL (130-400) 07/09/23 09:55 MPV fL (8.0-11.0) 07/09/23 09:55 Sodium 135 mmol/L (136-145) L 07/09/23 12:35 Potassium 4.2 mmol/L (3.5-5.1) 07/09/23 12:35 Chloride 103 mmol/L (98-107) 07/09/23 12:35 Carbon Dioxide 21.8 mmol/L (21.0-32.0) 07/09/23 12:35 Anion Gap 10.2 mmol/L (3-11) 07/09/23 12:35 BUN 10 mg/dL (7-18) 07/09/23 12:35 Creatinine 0.6 mg/dL (0.55-1.02) 07/09/23 12:35 Est GFR (CKD-EPI 2020) 121.47 (mL/min/1.73m2) 07/09/23 12:35 Glucose 83 mg/dL (74-106) 07/09/23 12:35 Uric Acid 4.7 mg/dL (2.6-6.0) 07/09/23 12:35 Calcium 9.4 mg/dL (8.5-10.1) 07/09/23 12:35 Total Bilirubin 0.2 mg/dL (0.2-1.0) 07/09/23 12:35 AST 17 U/L (15-37) 07/09/23 12:35 ALT 17 U/L (14-59) 07/09/23 12:35 Alkaline Phosphatase 174 U/L (46-116) H 07/09/23 12:35 Total Protein 7.2 g/dL (6.4-8.2) 07/09/23 12:35 Albumin 2.6 g/dL (3.4-5.0) L 07/09/23 12:35 Ur Random Creatinine 172.96 mg/dL 07/09/23 08:30 U Random Total Protein 23.5 mg/dL 07/09/23 08:30 U [place] Prot/Creat Ratio 0.13 07/09/23 08:30 Urine Opiates Screen Negative (Negative) 07/09/23 08:30 Urine Methadone Screen Negative (Negative) 07/09/23 08:30 Ur Barbiturates Screen Negative (Negative) 07/09/23 08:30 Ur Tricyclics Screen Negative (Negative) 07/09/23 08:30 Ur Amphetamines Screen Negative (Negative) 07/09/23 08:30 U Benzodiazepines Scrn Negative (Negative) 07/09/23 08:30 Urine Cocaine Screen Negative (Negative) 07/09/23 08:30 Ur THC Screen Negative (Negative) 07/09/23 08:30 Patient ABO/Rh A Positive 07/09/23 09:55 Antibody Screen NEGATIVE 07/09/23 09:55 Subjective Patient Reports: No new Complaints Interval history since last seen: Julisa voided on commode. Epidural bolus by Randy Samaniego with good effect. FECG and IUPC placed. Variable decelerations are intermittent. Strip viewed by Dr Calderon and report provided on patient's status. Pitocin was turned off due to variable decelerations. Julisa complained of bladder pain and a straight cath was placed for 25 cc clear urine. She requested tylenol for a headache. Julisa has not been able to rest well due to contraction pain. Results Hemoglobin/Hematocrit: Hgb 13.4 g/dL (11.2-15.7) 07/09/23 09:55 Hct 40.0 % (36.0-46.0) 07/09/23 09:55 Abnormal Lab Findings: Abnormal Labs 07/09/23 12:35 Sodium 135 L Alkaline Phosphatase 174 H Albumin 2.6 L
[2023-07-09] MEDS: Calcium Carbonate *TUMS* 500 MG CHEW 1000 MG PO (22:07)
[2023-07-09] MEDS: Acetaminophen 500 MG TAB 1000 MG PO (22:07)
[2023-07-10] VITALS (23 sets, daily range): BP systolic 107–151; BP diastolic 55–85; PULSE 74–98; RESP 16–22; TEMP 36.3–38.1; O2SAT 97–100
--- NOTE | 2023-07-10 02:26 | PGE_ITS ---
Date of service: 07/10/23 Time of Service: 02:26 Informed Consent Informed Consent: Augmentation of Labor and Risk,Benefits,Alternatives Discussed Pelvic Exam Dilation: 8 station: +1 Cervix Position: mid Consistency: soft Contractions Monitor Mode: Internal Contraction Frequency(min): every 2-3 Contraction Duration(sec): 60 Intensity: Moderate/Strong IUPC resting tone (mmHg): 20 IUPC peak pressure (mmHg): 100 IUPC [place] units: 200 Fetus A Monitor: Internal (FSE) Heart Rate Baseline: 130 Presentation: Vertex Variability: Moderate (6-25 BPM) Categories: Category II FHR Rhythm: Regular Accelerations: 15 X 15 Decelerations: Variable Recurrence: Intermittent Assessment Note: Pitocin was discontinued due to recurrent variable decelrations. Variable decelerations became shorter going down to 100 - 110 with rapid return to baseline. Assessment and Plan Assessment and plan (1) Encounter for induction of labor: Status: Acute Assessment and plan: Will continue to assess labor progress and heart rate pattern. Anticipate . Comfort measures. Objective Abnormal lab results 07/09/23 Range/Units 12:35 Sodium 135 L (136-145) mmol/L Alkaline Phosphatase 174 H (46-116) U/L Albumin 2.6 L (3.4-5.0) g/dL Temp Pulse Resp BP Pulse Ox 98.2 F 78 18 118/64 98 07/10/23 02:00 07/10/23 02:00 07/10/23 02:00 07/10/23 02:00 07/10/23 02:00 Laboratory Results WBC 9.80 10^3/uL (4.4-10.8) 07/09/23 09:55 RBC 4.65 10^6/uL (3.93-5.22) 07/09/23 09:55 Hgb 13.4 g/dL (11.2-15.7) 07/09/23 09:55 Hct 40.0 % (36.0-46.0) 07/09/23 09:55 MCV 86 fL (80-95) 07/09/23 09:55 MCH 28.8 pg (27.0-33.0) 07/09/23 09:55 MCHC 33.5 % (32.0-36.0) 07/09/23 09:55 RDW 14.6 % (11.7-14.6) 07/09/23 09:55 Plt Count 10^3/uL (130-400) 07/09/23 09:55 MPV fL (8.0-11.0) 07/09/23 09:55 Sodium 135 mmol/L (136-145) L 07/09/23 12:35 Potassium 4.2 mmol/L (3.5-5.1) 07/09/23 12:35 Chloride 103 mmol/L (98-107) 07/09/23 12:35 Carbon Dioxide 21.8 mmol/L (21.0-32.0) 07/09/23 12:35 Anion Gap 10.2 mmol/L (3-11) 07/09/23 12:35 BUN 10 mg/dL (7-18) 07/09/23 12:35 Creatinine 0.6 mg/dL (0.55-1.02) 07/09/23 12:35 Est GFR (CKD-EPI 2020) 121.47 (mL/min/1.73m2) 07/09/23 12:35 Glucose 83 mg/dL (74-106) 07/09/23 12:35 Uric Acid 4.7 mg/dL (2.6-6.0) 07/09/23 12:35 Calcium 9.4 mg/dL (8.5-10.1) 07/09/23 12:35 Total Bilirubin 0.2 mg/dL (0.2-1.0) 07/09/23 12:35 AST 17 U/L (15-37) 07/09/23 12:35 ALT 17 U/L (14-59) 07/09/23 12:35 Alkaline Phosphatase 174 U/L (46-116) H 07/09/23 12:35 Total Protein 7.2 g/dL (6.4-8.2) 07/09/23 12:35 Albumin 2.6 g/dL (3.4-5.0) L 07/09/23 12:35 Ur Random Creatinine 172.96 mg/dL 07/09/23 08:30 U Random Total Protein 23.5 mg/dL 07/09/23 08:30 U [place] Prot/Creat Ratio 0.13 07/09/23 08:30 Urine Opiates Screen Negative (Negative) 07/09/23 08:30 Urine Methadone Screen Negative (Negative) 07/09/23 08:30 Ur Barbiturates Screen Negative (Negative) 07/09/23 08:30 Ur Tricyclics Screen Negative (Negative) 07/09/23 08:30 Ur Amphetamines Screen Negative (Negative) 07/09/23 08:30 U Benzodiazepines Scrn Negative (Negative) 07/09/23 08:30 Urine Cocaine Screen Negative (Negative) 07/09/23 08:30 Ur THC Screen Negative (Negative) 07/09/23 08:30 Patient ABO/Rh A Positive 07/09/23 09:55 Antibody Screen NEGATIVE 07/09/23 09:55 Subjective Patient Reports: No new Complaints Interval history since last seen: Julisa has been resting and she was able to fall asleep briefly. She voided on the commode. Results Hemoglobin/Hematocrit: Hgb 13.4 g/dL (11.2-15.7) 07/09/23 09:55 Hct 40.0 % (36.0-46.0) 07/09/23 09:55 Abnormal Lab Findings: Abnormal Labs 07/09/23 12:35 Sodium 135 L Alkaline Phosphatase 174 H Albumin 2.6 L
[2023-07-10] MEDS: Lidocaine 5% Patch 2 PATCH TP (04:25)
[2023-07-10] MEDS: FentaNYL/ROPIvacaine 2 mcg/ml and 0.1% 200 ML CADD Cassette EP (04:40)
--- NOTE | 2023-07-10 06:30 | PLAC_PTH ---
PATIENT: Julisa Mayo LOC: OBS U#:[id number] AGE/SX: 33/F ROOM: OBS.301 RE07/09/[address]: Estefany Victoria : 1990 BED: A DIS: 07/13/2023 SPEC #: [id number] RECD: 07/10/23 12:49 STATUS: THERON REQ #: [id number] GRACIELA: 07/10/23 06:[address]: Estefany Victoria DEPT: Surgical Specimen RECD BY: Karla Talbert ENTERED: 07/10/23 12:49 SP TYPE: PLAC OTHR DR: Marcia Hogan Tissues: 1 - PLACENTA (3RD TRIMESTER) Procedures: GROSS AND MICRO LEVEL 5 Comments: [id number]
[2023-07-10] MEDS: Ibuprofen 600 MG TAB PO ×3 (07:37→20:08)
[2023-07-10] MEDS: Acetaminophen 325 MG TAB 650 MG PO ×4 (07:38→20:08)
[2023-07-10] MEDS: Cyclobenzaprine 10 MG TAB PO ×2 (07:39→20:28)
--- NOTE | 2023-07-10 07:50 | OBVDS_ITS ---
Date of service: 07/10/23 Time of Service: 07:50 OB Labor/ Delivery Information Baby A Delivery Delivery Method: Spontaneaous Cephalic Position: Vertex Vertex Position: Right Occipital Anterior Cord Description-Baby A: 3 Vessels Amniotic Fluid: Clear Estimated Blood Loss: 300 Delivery Outcome: Liveborn Transferred: Remains with Mother Note: FHTs 130s during first stage of labor with variable decelerations. Interventions included stopping pitocin and administering oxygen via mask and position changes. Julisa began to experience pain and she was examined and was fully dilated. She was encourgaed to begin pushing. She started experiencing sever spasms in her right shoulder and neck. Interventions such as ice and heat and lidocaine patches x 2 were provided with minimal effect. The pain of this made it hard for her to push. She also began experiencing pain in her lower abdomen. FHTs 120s in second stage with persistent variable decelerations. Dr Calderon was consulted after [address] pushing [address] Karen Núñez was called to attend the delivery. Both were present on the unit. Dr. Calderon recommended calling the OR team and Randy MEDLEY to be in house in the event of operative delivery or . Julisa stopped pushing due to discomfort and the pitocin was discontinued. She used nitrous oxide at that time to assist her with th eneck pain. Randy MEDLEY provided an epidural bolus which was efffective and Julisa was able to resume pushing with a lot of encouragement. Dr Calderon came in to the room to provide coaching to Julisa while she was pushing. Second stage huddle was done at 2 and 4 hours of second stage. Pitocin was restarted at 2 mu/min. I cut an episiotomy and the baby continued to descend but did not move to despite coaching and good maternal pushing efforts. Dr. Calderon took over the delivery and there was a spontaneous delivery of female infant delivered in BENITO position and the shoulders delivered easily. The cord was cut by Dr Calderon and the baby had decreased tone and was placed on the w armer with Dr Núñez and was dried and stimulated. There was a spontaneous cry. The placenta delivered spontaneously and appears to by intact with a three vessel cord. Pitocin 30 units IV was administered after delivery of the placenta. The perineum was inspected and Dr Calderon and there was a second degree laceration with a right sulcus extension which I repaired under local anesthetic with 2-0 and 3-0 vicryl sutures. The baby did breastfeed. The neck spasms improved after delivery but Julisa requested a muscle relaxer and flexeril was administered PO. After delivery, Mother and baby and father of the baby were stable and bonding well in the delivery room and there were no complications. Providers Doctor: Hayde Alatorre Principal Cyber Engineer: Estefany Victoria Shoe Lay Out Planner: Lisa Núñez Nurse: Mirela Pascal Nurse: Alee Alnoso Labor/Delivery Information Number of Babies in Womb: 1 Steroids Given: None Reason Steroids Not Administered: N/A Group Beta Strep: Negative Antibiotics Administered: No Rubella Status: Immune Blood Type: A+ Varicella Immunity: Immune Medication in Delivery: Pitocin, Fent/rop Born En Route: No Maternal Complications: Prolonged Second Stage(>2hrs) Shoulder Dystocia: No Stages of Labor Onset of Labor Date: 07/08/23 Onset of Labor Time: 17:00 Complete Dilatation Date: 07/10/23 Complete Dilatation Time: 02:38 Labor - Stage 1 Duration: 33 hours and 38 minutes ROM Baby A: 07/09/23 ROM Baby A: 18:50 ROM Total Time- Baby A: [id number] Infant Delivery Date-Baby A: 07/10/23 Infant Delivery Time-Baby A: 06:24 Labor Stage 2 Duration: 3 hours and 46 minutes Placenta Delivery Date-Baby A: 07/10/23 Total Length of Labor-Baby A: 37 hours and 24 minutes Placenta Cultured: No Placenta Status: Delivered Baby A Infant Gender: Female Gestational Status: Term (39-41.6 wks) Gestational Age in Weeks/Days: 41 Weeks and 4 Days Score-1 Minute Interval(Baby A) Heart Rate-1 minute: 100 BPM or Greater Respiratory Effort- 1 minute: Spontaneous/Strong Cry Muscle Tone-1 minute: Minimal Flexion/Extension Reflex Response-1 minute: Prompt Response Color-1 minute: Pallor or Cyanosis Total Score-1 minute: 7 Score-5 Minute Interval(Baby A) Heart Rate- 5 minute: 100 BPM or Greater Respiratory Effort-5 minute: Spontaneous/Strong Cry Muscle Tone-5 minute: Active Movement Reflex Response-5 minute: Prompt Response Color-5 minute: Bluish Hands or Feet Total Score- 5 minute: 9
[2023-07-10] MEDS: Buprenorphine/Naloxone 8 mg/2 mg FILM 1 EACH SL (08:25)
[2023-07-10] MEDS: Normal Saline Flush 10 ML SYR IVP ×2 (09:00→20:09)
[2023-07-10] MEDS: Hamamelis Leaf/Glycerin 100 EACH BOX PR (10:47)
[2023-07-10] MEDS: Dibucaine 1% 28 GM TUBE TP (10:48)
[2023-07-10 10:59] LABS: Fentanyl Scr w/Rfx Confirm Negative ng/mL (<1)
[2023-07-10] MEDS: Docusate Sodium 100 MG CAP PO (12:08)
--- NOTE | 2023-07-10 15:17 | W.ANESPOSTOP ---
Postoperative Evaluation Date, Time and Location Date Performed: 07/10/23 Time Performed: 15:17 Patient Location: Obstetrics Vital Signs Most Recent Imported Vital Signs: Most Recent Vital Signs Temp Pulse Resp BP Pulse Ox 37 C 94 H 20 144/82 H 97 07/10/23 11:00 07/10/23 11:00 07/10/23 11:00 07/10/23 11:00 07/10/23 11:00 Pain Score Most Recent Pain Score: Most Recent Pain Score Pain Level [Soft Tissue] 5 07/10/23 11:00 Pain Level 3 07/10/23 13:09 Assessment Mental Status: Awake (Alert & Oriented to Patient Baseline) Airway and Respiratory Function: Patent airway with normal (patient baseline) respiratory exam Cardiovascular Function: Hemodynamically Stable Hydration Status: Adequately Hydrated Nausea & Vomiting: No Nausea or Vomiting Pain: Pain is tolerable per patient Peripheral Nerve Block: Patient did not receive a nerve block Postoperative Comments:: Patient denies any residual leg weakness.
[2023-07-10] MEDS: Lidocaine 5% Patch 1 PATCH (15:36)
--- NOTE | 2023-07-10 15:59 | NUR.NOTE ---
Nursing Note: Pt is independent in self care and reports pain at tolerable level. Pt initiates care and feeding of .
[2023-07-11] MEDS: Acetaminophen 325 MG TAB 650 MG PO ×4 (02:33→20:05)
[2023-07-11] MEDS: Ibuprofen 600 MG TAB PO ×4 (02:34→21:05)
--- NOTE | 2023-07-11 02:40 | NUR.NOTE ---
Pt has remained wanting minimal interaction with staff all night. Upon hearing the door open for RN to check on them she immediately states we're fine Independently caring for and states is going well.
--- NOTE | 2023-07-11 05:12 | NUR.NOTE ---
Pt again requested minimal interruption. Barely accepting of TCbili reading and weight of NB. Stated NB had been eating for an hour and she just wanted to go to sleep. I asked to removed her Lidocaine patches from her shoulders and she wanted to know why. When I said they were only supposed to be on for 12 hours and it had been longer than that she replied that she would do it herself, promptly crawling into bed.
--- NOTE | 2023-07-11 05:56 | NUR.NOTE ---
Refused Lab draw this am, stating NB had just gone to sleep and she wanted to rest
[2023-07-11] MEDS: Buprenorphine/Naloxone 8 mg/2 mg FILM 1 EACH SL (07:30)
[2023-07-11] MEDS: Cyclobenzaprine 10 MG TAB PO ×3 (07:30→21:05)
--- NOTE | 2023-07-11 07:42 | W.PM.OBPNV1 ---
Date of service: 07/11/23 Time of Service: 07:42 Assessment and Plan Assessment and plan (1) Suboxone maintenance treatment complicating , antepartum: Status: Acute (2) Term delivered: Status: Acute Assessment and plan: A: PPD#1, nml recovery Processing experience is going well P: Colace BID to encourage BM Planning POP's for BCM 5 day CORY in progress, baby doing well Offered d/c to boarder status when feels ready PT visit inpt to assess neck and shoulder discomfort Subjective Subjective Patient comments: Pain well controlled, Tolerating diet and Other (general soreness, neck spasms still bothering her) Patient's Mood: happy [place] baby status: Doing well, Nursing well, Rooming in and Strong Bonding Observed [place] feeding status: Exclusively breast feeding Exam Physical Exam Vital signs: Temp Pulse Resp BP Pulse Ox 97.7 F 88 16 126/80 97 07/10/23 20:15 07/10/23 20:15 07/10/23 20:15 07/10/23 20:15 07/10/23 15:00 Vital Signs Reviewed: Yes Constitutional Constitutional: no acute distress, obese and cooperative HEENT Exam HEENT Exam: Normal Neck Exam Neck Exam: Normal (nml ROM) Breast Exam Bilateral: Breast Exam: Normal and Soft Nipple Exam: Normal and Uninjured Respiratory Exam Respiratory Exam: Normal Cardiovascular Exam Cardiovascular Exam: Normal Abdominal Exam Abdomen: Other (obese, soft) Fundal Exam Fundus: Below Umbilicus and Firm Rectal Exam Rectal Exam: Normal Exam Perineum: Edematous and Repair Intact Extremities Exam Extremity Exam: Edema, Full ROM and Warm to Touch Back/Spine/Pelvis Exam Back Exam: Normal Skin Exam Skin Exam: Normal Neurological Exam Neurological Exam: Normal Psychiatric Exam Psychiatric Exam: Normal
[2023-07-11 07:47] VITALS: BP 111/74; PULSE 77; RESP 16; TEMP 36.6; O2SAT 100
[2023-07-11 08:45] LABS: Buprenorphine 231.9 ng/mL (Cutoff: 5.0)
[2023-07-11] MEDS: Dibucaine 1% 28 GM TUBE TP (09:18)
[2023-07-11] MEDS: Hamamelis Leaf/Glycerin 100 EACH BOX PR (09:23)
[2023-07-11] MEDS: Docusate Sodium 100 MG CAP PO (15:45)
[2023-07-11] MEDS: Lidocaine 5% Patch 2 PATCH TP (20:06)
[2023-07-11 20:15] VITALS: BP 116/74; PULSE 90; RESP 16; TEMP 36.4
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
[2023-07-12] MEDS: Acetaminophen 325 MG TAB 650 MG PO ×5 (03:22→22:58)
[2023-07-12] MEDS: Ibuprofen 600 MG TAB PO ×4 (03:22→22:58)
[2023-07-12] MEDS: Buprenorphine/Naloxone 8 mg/2 mg FILM 1 EACH SL (08:40)
[2023-07-12] MEDS: Cyclobenzaprine 10 MG TAB PO (08:51)
[2023-07-12] MEDS: Docusate Sodium 100 MG CAP PO ×2 (08:51→22:58)
[2023-07-12] MEDS: Hamamelis Leaf/Glycerin 100 EACH BOX PR (08:56)
[2023-07-12] MEDS: Dibucaine 1% 28 GM TUBE TP (08:56)
[2023-07-12 09:00] VITALS: BP 122/74; PULSE 90; RESP 16; TEMP 36.7; O2SAT 97
--- NOTE | 2023-07-12 11:58 | IN_ITS ---
PT Notes Visit Reasons: Labor Physical Therapy Obstetrics Department Initial Evaluation Date: 07/12/2023 Referring Doctor: Lizeth Lynn MD PT Orders: PT CONSULT: neck/trap spasm & pain after difficult chirldbirth, taking flexeril Precautions: Standard. Activity as tolerated. Patient Profile/Admitting Diagnosis: Julisa is a 33-year-old female on Suboxone maintenance treatment and on day 1 with complaints of persistent pain in the L posterior neck and upper back. PMHX: All Active Problems (Updated 07/09/23 @ 11:30 by Estefany Victoria CNM) Spontaneous onset of labor (Acute) Anemia affecting first (Acute) Hepatitis C (Chronic) Pt. denies having this, and has tried to get it taken off your record because she says she has never had it Opioid type dependence, abuse (Acute) BMI 40.0-44.9, adult (Acute) (Acute) Difficult intravenous access (Acute) Has required multiple IV attempts with and without ultrasound in the past in arms and feet, sometimes without eventual success. Medical History (Updated 07/09/23 @ 11:30 by Estefany Victoria CNM) Threatened Early stage of SAB (spontaneous ) Fracture of sesamoid bone of foot, closed (~04/2019) Vasculitis Folic acid deficiency Irritable bowel syndrome denies having this dx and would like it removed from her record Hand swelling Abnormal hepatitis serology Migraine headache Cocaine abuse Anxiety with depression Fatigue Acute adjustment disorder with depressed mood Acne vulgaris Encounter for annual physical exam Depression Chronic interstitial cystitis Surgical History (Updated 12/15/22 @ 14:18 by Estefany Castellanos CNM) Status post left foot surgery Tonsillectomy 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 Lives with gianluca private home. Equipment Owned/DME: None Subjective: Julisa stated that the pain in her neck and upper back started during delivery and persisted today but now of less intensity as it was. She reported severe difficulty to bend back and bring both arms up overhead during delivery. She felt some relief as of today but pain persists to about 4-5/10. Nurse Aguiar has given patient medication for pain and muscle relaxation early this morning. Patient was agreeable to consult and treatment. Objective: General Observation: Ambulatory without device. Tense. Mental Status: Alert and oriented as to person, place, time, and purpose. Able to pay attention, focus, and respond appropriately. Pain: As above Vital Signs: Monitored by nursing staff ROM: Cervical: Mild discomfort at end of ranges of extension, rotation, and later flexion on B sides with R more affected than the L Right Upper Extremity: Shoulder Flexion WFL. Shoulder abduction WFL. Elbow flexion WFL. Wrist flexion WFL. Functional opening and closing of hand WFL. Left Upper Extremity: Shoulder Flexion WFL. Shoulder abduction WFL. Elbow flexion WFL. Wrist flexion WFL. Functional opening and closing of hand WFL. Strength: Cervical: Extensors 4/5. Flexors 5/5. Lateral flexors 4/5. Rotators 4/5. Right Upper Extremity: Shoulder flexors 4/5. Shoulder abductors 4/5. Elbow flexors 5/5. Elbow extensors 5/5. Adjunct Physical Education Instructor strong. Left Upper Extremity: Shoulder flexors 4/5. Shoulder abductors 4/5. Elbow flexors 5/5. Elbow extensors 5/5. Adjunct Physical Education Instructor strong. Bed Mobility/Transfers: Independent without device Gait: Independent without device Balance: Static Sitting: Normal Dynamic Sitting: Normal Static Standing: Normal Dynamic Standing: Good Special Tests: Mobility Limitations Standardized Measure [facility] AM-PAC 6 clicks Basic Mobility Inpatient Short Form: Raw Score: 24 CMS Score: 0% deficit Informed Consent/Education: Patient was instructed in purpose of PT consult and plan of care. Agreeable to proceed with established PT POC to achieve personal goals. Assessment: Trapezius muscle strain sustained from labor, R side more affected than the L. Patient has had good response from painmedicatin adn muscle relaxant prescribed for her. Patient is assessed as a 79804 low complexity based on the following: History: 33-year-old female with past medical history as indicated above Examination: Trapezius muscle strain sustained from labor, R side more affected than the L Presentation: Stable Decision Makin low complexity Goals: Goals X1 week 1. Patient will have / pain in B trapezius areas to allow for safe and efficient handling while allowing for optimal and painless breast feeding of her baby. Plan of Care/Treatment Plan: 1x/day, 7 days/week x 1 week. Plan of care has been reviewed with the SENIOR SQL DEVELOPER providing the service under Physical Therapy direction. Initiate Physical Therapy intervention for pain management as follows: -STM and release of middle and trapezius muscle on the R x 8 minutes -Gentle stretching to upper back and neck muscles -R scapular mobilization x 2 minutes - HEP: Shoulder rolls x 5 with deep breathing Shoulder elevation/depression x 5 with deep breathing Shoulder circles below sholder level x 5 and above shoulder level x 5 with deep breathing Neck rotation to L with ihahlation and then to R with exhalation x 5 Neck lateral flexion to L with inhalation and then to R with exhalation x 5 DISCHARGE RECOMMENDATIONS: [] Home with no services [] [] Home with services [specify] [X] Home with outpatient PT if symptoms persist. [] SNF for continued rehabilitation [] [] [facility] [] [] SNF versus LTC based on ability to participate and progress [] TREATMENT CODE/TIME: 54245 x 15 minutes for 1 unit, 14030 x 26 minutes for 2 units (15-11:56). Thank you for the opportunity to participate in the care of this patient. Kendra Wu PT, DPT, CLT [facility] [place], [place]
[2023-07-12 16:05] VITALS: BP 125/80; PULSE 81; RESP 16; TEMP 36.4; O2SAT 96
--- NOTE | 2023-07-12 18:14 | W.PM.OBPNV1 ---
Date of service: 07/12/23 Time of Service: 18:14 Assessment and Plan Assessment and plan (1) Suboxone maintenance treatment complicating , antepartum: Status: Acute (2) Term delivered: Status: Acute Assessment and plan: A: PPD#2, nml recovery continues is going well 5 day CORY/ESC in progress, baby doing well PT neck/shoulders done today with good results P: Colace BID to encourage BM, eating well Planning POP's for BCM Offered d/c to boarder status tomorrow, pt declines PT visit inpt #2 tomorrow morning, stop flexaril tomorrow. Schedule 2 & 6 wk appointments Will discharge pt when baby is discharged Subjective Subjective Patient comments: Pain well controlled, Tolerating diet and Flatus present Patient's Mood: happy, tired, wishes to go home [facility] [place] baby status: Doing well, Nursing well and Strong Bonding Observed feeding status: Exclusively breast feeding Exam Physical Exam Vital signs: Temp Pulse Resp BP Pulse Ox 97.5 F L 81 16 125/80 96 07/12/23 16:05 07/12/23 16:05 07/12/23 16:05 07/12/23 16:05 07/12/23 16:05 Vital Signs Reviewed: Yes Constitutional Constitutional: no acute distress, obese and cooperative HEENT Exam HEENT Exam: Normal Neck Exam Neck Exam: Normal (nml ROM) Breast Exam Bilateral: Breast Exam: Normal and Soft Respiratory Exam Respiratory Exam: Normal Cardiovascular Exam Cardiovascular Exam: Normal Abdominal Exam Abdomen: Other (obese, soft) Fundal Exam Fundus: Below Umbilicus and Firm Rectal Exam Rectal Exam: Normal Exam Perineum: Edematous and Repair Intact Extremities Exam Extremity Exam: Edema, Full ROM and Warm to Touch Back/Spine/Pelvis Exam Back Exam: Normal Skin Exam Skin Exam: Normal Neurological Exam Neurological Exam: Normal Psychiatric Exam Psychiatric Exam: Normal Hemorrrhage Note IV Site Midline: IV Catheter Gauge: 18
[2023-07-12 19:45] VITALS: BP 139/93; PULSE 123; RESP 16; TEMP 36.8
[2023-07-12 23:01] VITALS: BP 133/89; PULSE 102; TEMP 36.7
[2023-07-13] MEDS: Ibuprofen 600 MG TAB PO ×2 (04:47→11:15)
[2023-07-13] MEDS: Acetaminophen 325 MG TAB 650 MG PO ×3 (04:48→16:12)
[2023-07-13 07:40] VITALS: BP 135/89; PULSE 87; RESP 18; TEMP 36.7
[2023-07-13] MEDS: Buprenorphine/Naloxone 8 mg/2 mg FILM 1 EACH SL (08:33)
--- NOTE | 2023-07-13 10:10 | W.PM.OBPNV1 ---
Date of service: 07/13/23 Time of Service: 10:00 Assessment and Plan Assessment and plan (1) Term delivered: Status: Acute Assessment and plan: 1. Dr. Calderon and I examined patient together due to increased edema in lower extremities. Normal assessment status post delivery per Dr. Calderon and that no other intervention other than positional and SCD's while inpatient is required. She reviewed with Julisa that in 10-14 days or sooner she should expect very large and frequent amounts of urine passing and edema will improve. 2. Will discharge patient today as in-patient and allow her to stay as boarder. Will send meds to her pharmacy to be picked up by her . 3. Likely discharge later today after her PT assessment for neck pain. 4. Has appointments to follow up in office 2 and 6 weeks, will likely plan a 1 week follow up as well. 5. Discussed PPD and she will go back on a lower dose of her Fluoxetine and we will increase in 2 weeks if needed. KH Exam Physical Exam Vital signs: Temp Pulse Resp BP Pulse Ox 98.1 F 87 18 135/89 96 07/13/23 07:40 07/13/23 07:40 07/13/23 07:40 07/13/23 07:40 07/12/23 16:05 Vital Signs Reviewed: Yes Constitutional Constitutional: no acute distress and obese HEENT Exam HEENT Exam: Normal Neck Exam Neck Exam: Normal (reports neck pain is improving with PT and rest) Abdominal Exam Abdomen: Other (normal) Fundal Exam Fundus: Below Umbilicus and Firm Rectal Exam Rectal Exam: Not Done (patient declines) Exam Patient deferred: external exam and perineal exam Extremities Exam Extremity Exam: Edema (2+ to above knees, assessed by Dr. Calderon) and Full ROM Back/Spine/Pelvis Exam Back Exam: Normal Skin Exam Skin Exam: Abnormal (edematous in hands and lower extremities) Detailed Neurological Exam Neurological: Present alert, oriented X3, normal tone and normal speech Psychiatric Exam Psychiatric Exam: Normal Results Hemoglobin/Hematocrit: Hgb Cancelled 07/11/23 05:35 Hct Cancelled 07/11/23 05:35 Abnormal Lab Findings: Abnormal Labs 07/09/23 12:35 Sodium 135 L Alkaline Phosphatase 174 H Albumin 2.6 L
--- NOTE | 2023-07-13 11:26 | DSE_ITS ---
Date of service: 07/13/23 Time of Service: 11:26 DS: Diagnosis Discharge Diagnosis (1) Term delivered: Status: Acute Asessment and Plan: 1. Discussed discharge and boarder status with Julisa and she agrees to this plan of care 2. Prescriptions for Ibuprofen, Tylenol, Colace, Fluoxetine 20 mg daily and chewable vitamin has been sent to pharmacy for to bring to her tonight. 3. Will have 1,2 and 6 week PP visits to further assess edema 4. Will discuss contraception at 1 week PP visit. KH Discharge Plan Disposition Patient Disposition: Home Condition: Good Discharge Details Reason For Visit: Labor Admit Date/Time: 07/09/23 08:07 Admit Provider: Estefany Victoria Attending Provider: Estefany Victoria Primary Care Provider: Marcia Hogan [facility] Course Hospital Course: Admitted for induction due to postdated, with epidural anesthesia, nml course, well and participating in CORY care for . Home Meds and New Rx's Prescriptions: Continued inulin 2.5 gram tablet,chewable 2.5 g PO DAILY PRN Patient Comments: taking at night buprenorphine-naloxone 8-2 mg film 1 film buccal DAILY ibuprofen 600 mg tablet 600 mg PO Q6H PRN (Reason: pain) Qty: 90 1RF acetaminophen [Tylenol Extra Strength] 500 mg tablet 1,000 mg PO QID PRN (Reason: pain) Qty: 90 0RF docusate sodium [Colace] 100 mg capsule 100 mg PO BID PRN (Reason: constipation) Qty: 90 1RF fluoxetine 20 mg capsule 20 mg PO DAILY Qty: 30 0RF [id number] acid 29 mg iron- 1 mg tablet,chewable 1 tab PO DAILY Qty: 90 0RF M-Gerhard Plus 27 mg iron- 1 mg tablet 1 tab PO DAILY Patient Comments: TAKE ONE TABLET BY MOUTH EVERY DAY eletriptan 40 mg tablet 40 mg PO PRN Patient Comments: TAKE ONE TABLET BY MOUTH A SINGLE DOSE NEEDED FOR HEADACHE MAY REPEAT IN 2 HOURS DO NOT EXCEED 80MG IN 24 HOURS Discontinued ferrous sulfate 325 mg (65 mg iron) tablet 325 mg PO DAILY Qty: 60 4RF miconazole nitrate 2 % cream 1 appful VAGINAL ONCE PRN Hold Instructions: Pt Stopped/Never Started Patient Comments: INSERT 1 APPLICATORFUL QUITA VAGINA EVERY NIGHT FOR 7 DAYS Discharge Instructions Instructions: Fluoxetine (By mouth), Depression (GEN) Additional Instructions: Please keep your 2 and 6 wk appointments with the supply chain development manager, call for any and all concerns. Stand Alone Forms: BC Instructions, BC Post Vaginal Deliver Activity:: Activity as Tolerated Equipment/Supplies:: No Equipment Needed Diet:: Normal Diet Discharge Orders Discharge Orders: Discharge Order (Routine); Ordered 07/13/23 Ordered By: Estefany Castellanos OB:DS Summary Summary Vaginal Delivery Method: Spontaneaous Episiotomy Description: Midline Laceration Description: Perineal and Sulcus Laceration Extension: Second Degree Contraception Discussed Contraception Discussed: Yes (will consider options and review at 1-2 week PP visit), Infant Gender-Baby A: Female weight: 8 lb 5.688 oz Disposition of Baby A: Other (in patient CORY for 5 days then planned discharge home) Status at Discharge Functional status at discharge: independent ambulation Overall status at discharge: patient is back to baseline Mental Status: mental status grossly normal Speech and Movement: speech and movement normal Mood: congruent mood Affect: normal affect Time Spent with Patient providing and/or coordinating discharge services: Less than 30 minutes Quality:SDKY Health Related Social Needs: No Data to Display Exam Physical Exam Vital signs: Temp Pulse Resp BP Pulse Ox 98.1 F 87 18 135/89 96 07/13/23 07:40 07/13/23 07:40 07/13/23 07:40 07/13/23 07:40 07/12/23 16:05 Vital Signs Reviewed: Yes Constitutional Constitutional: no acute distress, obese and cooperative HEENT Exam HEENT Exam: Normal Neck Exam Neck Exam: Normal (normal visual inspection) Respiratory Exam Respiratory Exam: Normal Cardiovascular Exam Cardiovascular Exam: Normal Abdominal Exam Abdomen: Other (normal exam) Fundal Exam Fundus: Below Umbilicus and Firm Comment: small lochia noted. KH Rectal Exam Rectal Exam: Not Done Exam Perineum: Intact and Normal Extremities Exam Extremity Exam: Edema (2+ bilaterally to above knees), Full ROM, Pulses Intact and Warm to Touch Back/Spine/Pelvis Exam Back Exam: Normal Skin Exam Skin Exam: Normal Neurological Exam Neurological Exam: Normal Psychiatric Exam Psychiatric Exam: Normal PFSH All Active Problems Term delivered (Acute) Suboxone maintenance treatment complicating , antepartum (Acute) Hepatitis C (Chronic) Pt. denies having this, and has tried to get it taken off your record because she says she has never had it. Antibody positive, RNA titer undetectable. BMI 40.0-44.9, adult (Acute) Difficult intravenous access (Acute) Has required multiple IV attempts with and without ultrasound in the past in arms and feet, sometimes without eventual success. Medical History Opioid type dependence, abuse Anemia affecting first Spontaneous onset of labor Encounter for induction of labor Threatened Early stage of SAB (spontaneous ) Fracture of sesamoid bone of foot, closed (~04/2019) Vasculitis Folic acid deficiency Irritable bowel syndrome denies having this dx and would like it removed from her record Hand swelling Abnormal hepatitis serology Migraine headache Cocaine abuse Anxiety with depression Fatigue Acute adjustment disorder with depressed mood Acne vulgaris Encounter for annual physical exam Depression Chronic interstitial cystitis Surgical History Status post left foot surgery Tonsillectomy Family History Mother Breast cancer Celiac disease Maternal Grandmother Dementia Parkinson disease Maternal Grandfather Dementia Niece Celiac disease Paternal Grandfather Polio Social History Smoking/Tobacco Use Status: Former Tobacco Use Quit Date: 04/02/17 Smoking risk assessment performed?: Yes Alcohol Intake: current Alcohol Intake frequency: holidays/special occasions only Alcohol type: wine Drug use: Current Sobriety Substance use type: former substance user, crack/cocaine and opiates Details: states she has not used in 2-3 years Housing: house Number of Children: 0 Current gender identity: female Do you feel safe at home: Yes Do you feel safe in your relationship?: Yes Female Reproductive History Menstrual Age of Menarche: 10 control method: pills History History 2 Para 0 Hx # Term Pregnancies 0 Multiple births 0 Hx # Pregnancies 0 Ectopic pregnancies 0 AB induced 0 Hx Number of Living Children 0 AB spontaneous 1 Past Pregnancies Del. Date GA/Weeks # Preg Succ Route Wgt Sex Labor Lgth Anesth esia Location Prov Complic 06/14/22 9 No No Delivery Date: 06/14/22 Last Updated by: DELIA Daniel DS: Data Vitals/I&O Vitals and I&O: Vital Signs Temperature 98.1 F 07/13/23 07:40 Temperature Source Oral 07/13/23 07:40 Pulse 87 07/13/23 07:40 Pulse Rhythm Regular 07/13/23 08:00 Respiratory Rate 18 07/13/23 07:40 Respiratory Depth Normal 07/12/23 19:45 Blood Pressure 135/89 07/13/23 07:40 Blood Pressure Mean 104 07/13/23 07:40 Pulse Oximetry 96 07/12/23 16:05 Oxygen Delivery Method Room Air 07/09/23 08:32 Oxygen Flow Rate 0 07/09/23 08:32 Pain Level 3 07/13/23 11:15 Comment CNM aware 07/12/23 19:45 Intake & Output 07/12/23 07/12/23 07/13/23 11:59 23:59 11:59 Intake Total 1133.267 / 1133.267 Balance 1133.267 / 1133.267 Intake: IV 1133.267 / 1133.267
[2023-07-13 11:44] VITALS: BP 123/84
[2023-07-13] MEDS: Dibucaine 1% 28 GM TUBE TP (12:00)
[2023-07-13] MEDS: Bisacodyl 10 MG SUPP PR (12:00)
--- NOTE | 2023-07-13 15:24 | PT.INTREAT ---
PT Notes Visit Reasons: Labor Direct Treatment Time: [30] Total Treatment Time: [30] Treatment Units Time Duration Manual Therapy (86062) [2] [30] Subjective: Pt reports she is still having pain amnd tension on her right shoulder and back area, pain has significantly decreased to 2/10. Manual therapy 72591 30mins: Hands-on techniques to Modulate pain Increase joint range of motion Reduce or eliminate soft tissue swelling, inflammation, or restriction Facilitate relaxation and improve contractile and non-contractile tissue extensibility. Treatment: Activity initiated with pt in seated position doing OA release, TPR on the cervical paraspinals, upper traps, levator scapula and periscapular area, AP glide for the thoracolumbar junction, petrissage on the periscapular area and upper quadrant of trunk, Seated cervical MET in lateral deviation, lateral rotation, flexion extension followed by pin and stretch for the levator scapula bilaterally and sternocliedomatoid bilaterally, activity conclude with thoracic extension stretch with cervical extension with 10secs hold 3x.
[2023-07-13 15:49] VITALS: BP 137/80; PULSE 97; RESP 16; TEMP 36.7; O2SAT 98
[2023-07-13] MEDS: Cyclobenzaprine 10 MG TAB PO (19:56)
== END 2023-07-13 20:40 | disposition home or self-care (01) | DRG 806 ==
LOC: BCD 15:46 → OBS 15:46
PROVIDERS: Admitting Provider Advanced Practice Midwife; PCP Family Medicine; Visit Provider Advanced Practice Midwife
DX: O48.0 Post-term pregnancy (principal); F11.20 Opioid dependence, uncomplicated; Z37.0 Single live birth; O99.324 Drug use complicating childbirth; O99.354 Diseases of the nervous system complicating childbirth; Z3A.41 41 weeks gestation of pregnancy; O12.05 Gestational edema, complicating the puerperium; O70.1 Second degree perineal laceration during delivery; O69.81X0 Labor and delivery complicated by cord around neck, without compression, not applicable or unspecified; O76 Abnormality in fetal heart rate and rhythm complicating labor and delivery; O99.214 Obesity complicating childbirth; E66.9 Obesity, unspecified; O99.02 Anemia complicating childbirth; D64.9 Anemia, unspecified; O99.344 Other mental disorders complicating childbirth; F14.10 Cocaine abuse, uncomplicated; E53.8 Deficiency of other specified B group vitamins; G43.909 Migraine, unspecified, not intractable, without status migrainosus; F43.23 Adjustment disorder with mixed anxiety and depressed mood; R79.89 Other specified abnormal findings of blood chemistry; Z79.899 Other long term (current) drug therapy
CPT/HCPCS: 36415; 76942; 80053; 80307; 80348; 85027; 86850; 86900; 86901; 97140; 82565; 84156; 84550; 88307; J2003; J3490

== ENCOUNTER 2023-07-19 15:14 | Outpatient (REF) | payer OTHER, SELFPAY | END 2023-07-19 15:15 | disposition home or self-care (01) | LOC: LBN 15:14 | PROVIDERS: PCP Family Medicine; Visit Provider Advanced Practice Midwife | DX: R10.2 Pelvic and perineal pain (principal) | CPT/HCPCS: 87086 ==

== ENCOUNTER 2023-08-10 13:54 | Outpatient (REF) | payer OTHER, SELFPAY ==
[2023-08-10 15:02] LABS: Bilirubin Color Interference (Negative); Blood Color Interference (Negative); Clarity Clear (Clear); Glucose Color Interference mg/dL (Negative); Ketones Color Interference mg/dL (Negative); Leukocyte Esterase Color Interference (Negative); Nitrite Color Interference (Negative); Specific Gravity 1.024 (1.005-1.025); Urobilinogen Color Interference mg/dL (Up to 0.2)
[2023-08-10 15:03] LABS: WBC 0-2 HPF (0-5)
[2023-08-10 15:05] LABS: Epithelial Cells Moderate HPF (Negative)
[2023-08-10 15:07] LABS: Bacteria Rare HPF (Negative); C & S Indicated? No; Casts Negative LPF (Negative); Crystals Many Amorphous HPF (Negative); Mucus Negative (Negative)
== END 2023-08-10 13:55 | disposition home or self-care (01) ==
LOC: NCHCN 13:54
PROVIDERS: PCP Family Medicine; Visit Provider Family Medicine
DX: R30.0 Dysuria (principal)
CPT/HCPCS: 81003; 81015

== ENCOUNTER 2023-08-22 14:01 | Outpatient (REF) | payer OTHER, SELFPAY | END 2023-08-22 14:02 | disposition home or self-care (01) | LOC: LBN 14:01 | PROVIDERS: PCP Family Medicine; Visit Provider Advanced Practice Midwife | DX: R10.2 Pelvic and perineal pain (principal); B96.89 Other specified bacterial agents as the cause of diseases classified elsewhere | CPT/HCPCS: 87086; 87480; 87510; 87660 ==

== ENCOUNTER 2024-08-01 15:29 | Outpatient (CLI) | payer OTHER, SELFPAY ==
[2024-08-01 15:37] LABS: HCT 41.6 % (36.0-46.0); HGB 13.4 g/dL (11.2-15.7); MCH 28.2 pg (27.0-33.0); MCHC 32.2 % (32.0-36.0); MCV 88 fL (80-95); MPV 11.3 fL (8.0-11.0); Platelet Count 185 10^3/uL (130-400); RBC 4.75 10^6/uL (3.93-5.22); RDW 12.8 % (11.7-14.6); RDW-SD 41.4 fL; WBC 7.06 10^3/uL (4.4-10.8)
[2024-08-01 16:33] LABS: Hemoglobin A1C 5.4 % (<5.7)
[2024-08-01 16:37] LABS: C-Reactive Protein 0.62 mg/dL (<or=0.5); Magnesium 1.8 mg/dL (1.8-2.4)
[2024-08-01 17:20] LABS: Ferritin 45 ng/mL (8-252); Vitamin B12 611 pg/mL (193-986)
[2024-08-01 17:22] LABS: Folate > 20.0 ng/mL (8.6-20.0)
== END 2024-08-01 15:30 | disposition home or self-care (01) ==
LOC: LBO 15:29
PROVIDERS: PCP Family Medicine; Visit Provider Family Medicine
DX: G25.81 Restless legs syndrome (principal)
CPT/HCPCS: 36415; 85027; 82607; 82728; 82746; 83036; 83735; 86140

== ENCOUNTER 2024-10-11 13:08 | Emergency (ER) | payer OTHER, SELFPAY ==
[2024-10-11 13:11] VITALS: BP 126/85; PULSE 96; RESP 18; TEMP 36.8; O2SAT 98
--- NOTE | 2024-10-11 14:16 | ED.GENADUL_ITS ---
Discharge Plan Disposition Patient Disposition: Home Condition: Stable Discharge Details Clinical Impression: Cellulitis, Positive test Primary Care Provider: Marcia Hogan ED Provider: Babak Aguilera Home Meds and New Rx's Prescriptions: Continued buprenorphine-naloxone 8-2 mg film 1 film buccal DAILY cephalexin 500 mg capsule 500 mg PO QID Qty: 40 0RF fluoxetine 20 mg capsule 20 mg PO DAILY Qty: 30 0RF [id number] acid 29 mg iron- 1 mg tablet,chewable 1 tab PO DAILY Qty: 90 0RF M-Gerhard Plus 27 mg iron- 1 mg tablet 1 tab PO DAILY Patient Comments: TAKE ONE TABLET BY MOUTH EVERY DAY eletriptan 40 mg tablet 40 mg PO PRN Patient Comments: TAKE ONE TABLET BY MOUTH A SINGLE DOSE NEEDED FOR HEADACHE MAY REPEAT IN 2 HOURS DO NOT EXCEED 80MG IN 24 HOURS phenazopyridine 200 mg tablet Patient Comments: TAKE ONE TABLET BY MOUTH TWICE A DAY NEEDED ropinirole 0.25 mg tablet Patient Comments: TAKE ONE TABLET BY MOUTH EVERY DAY FOR 2 DAYS, THEN 2 TABLETS DAILY FOR 5 DAYS, THEN INCREASE TO 1MG DOSE acetaminophen [Tylenol Extra Strength] 500 mg tablet 1,000 mg PO QID PRN (Reason: pain) Qty: 90 0RF Held ibuprofen 600 mg tablet 600 mg PO Q6H PRN (Reason: pain) Qty: 90 1RF Hold Instructions: Due to known as this is a higher risk medication Discharge Instructions Instructions: symptoms, Cellulitis (Skin Infection), Adult ED Additional Instructions: At this time your findings are consistent with cellulitis but we are not seeing severe or emergent laboratory results or physical exam. You do though have obvious skin infection but had been given IV antibiotics. In the next 24 hours you should see a stabilization of your symptoms. If come tomorrow morning you have significant worsening of condition you should immediately return to the emergency department for reevaluation and reassessment along with consideration of additional antibiotics or admission. It is very important that you continue your Keflex as prescribed(4 times daily) and follow-up with your primary care provider next week even if you are improving. You were found to be (congratulations) and the medication prescribed is okay to continue but please discuss your complete medications with your primary care provider. Continue vitamins and use acetaminophen for pain as NSAIDs do carry a higher risk of complications if taken. Referrals: Marcia Hogan MD [Primary Care Provider, Medicine] - 3 days HPI General Mode of arrival: ambulatory . Date/Time Provider Initiated Documentation: 10/11/24 13:18 . Limitations to Documentation: no limitations . Information obtained by: patient, RN notes reviewed and old records reviewed . History of Present Illness 34 year old F presents to the emergency department with the chief complaint of Worsening right leg infection, described as moderate and severe, Quality is described as aching and constant, and is localized to the right and lower extremity. Patient started experiencing this day(s) (7) and it has been constant. No relieving factors improve symptom(s), No exacerbating factors reported . Patient notes fever/chills. Patient did receive the following treatments prior to arrival, other (3 doses of Keflex) Related Data Home Medications ?Medication ?Instructions ?Recorded ?Confirmed buprenorphine 8 mg-naloxone 2 mg 1 film buccal DAILY 0 05/25/23 10/11/24 sublingual film eletriptan 40 mg tablet 40 mg PO PRN 07/09/23 vitamins with calcium 1 tab PO DAILY 07/09/23 10/10/24 no.72-iron 27 mg-folic acid 1 mg tablet (M- Plus) fluoxetine 20 mg capsule 20 mg PO DAILY #30 caps 07/0110/11/24 ibuprofen 600 mg tablet 600 mg PO Q6H PRN pain #90 t abs 07/13/23 10/11/24 Held on 10/11/24. Instructions: Due to known as this is a higher risk medication vitamins no.115-iron 29 1 tab PO DAILY #90 ta bs 07/13/23 10/11/24 mg-folic acid 1 mg chewable tablet cephalexin 500 mg capsule 500 mg PO QID #40 caps 10/1010/11/24 acetaminophen 500 mg tablet 1,000 mg (2 x 500 mg) PO Q ID PRN 10/11/24 10/11/24 (Tylenol Extra Strength) pain #90 tabs phenazopyridine 200 mg tablet mg 10/11/24 ropinirole 0.25 mg tablet mg 10/11/24 Previous Rx's ?Medication ?Instructions ?Recorded fluoxetine 20 mg capsule 20 mg PO DAILY #30 caps 07/01 05/26 ibuprofen 600 mg tablet 600 mg PO Q6H PRN pain #90 t abs 07/13/23 Held on 10/11/24. Instructions: Due to known as this is a higher risk medication vitamins no.115-iron 29 1 tab PO DAILY #90 ta bs 07/13/23 mg-folic acid 1 mg chewable tablet cephalexin 500 mg capsule 500 mg PO QID #40 caps 10/10 acetaminophen 500 mg tablet 1,000 mg (2 x 500 mg) PO Q ID PRN 10/11/24 (Tylenol Extra Strength) pain #90 tabs Allergies Allergy/AdvReac Type Severity Reaction Status Date / Time No Known Drug Allergies Allergy Other (See Verified 10/11/24 13:15 Comment) General Stated Complaint: Cellulitis MOSHE: 3 Review of Systems Constitutional Constitutional: Reports chills, Reports fever(s) and Reports malaise Cardiovascular Cardiovascular: Denies chest pain and Denies dyspnea Respiratory Respiratory: Denies dyspnea Gastrointestinal Gastrointestinal: Denies abdominal pain, Denies nausea and Denies vomiting Integumentary/Breasts Skin/Breast: Reports as per HPI, Reports erythema, Reports skin pain and Reports skin swelling Exam Const General: cooperative and no acute distress Orientation: alert, awake and oriented x3 HENMT Mouth: moist mucous membranes Resp Effort & Inspection: normal respiratory effort, able to speak in complete sentences and no respiratory distress Cardio Rate: regular rate Rhythm: regular rhythm Neuro General: patient alert, patient awake, patient oriented x3, moves all extremities and no focal motor deficits Sensory Exam: no sensory deficits noted Extrem General: normal exam except as noted Right lower extremity: lower leg Details: erythema, tenderness, non-pitting edema and warmth Course Vital Signs Vital signs: Vital Signs Temperature 36.8 C 10/11/24 13:11 Pulse 96 H 10/11/24 13:11 Respiratory Rate 18 10/11/24 13:11 Blood Pressure 126/85 10/11/24 13:11 Pulse Oximetry 98 10/11/24 13:11 Temperature 36.8 C 10/11/24 13:11 Temperature Source Oral 10/11/24 13:11 Pulse 96 H 10/11/24 13:11 Respiratory Rate 18 10/11/24 13:11 Blood Pressure 126/85 10/11/24 13:11 Pulse Oximetry 98 10/11/24 13:11 Oxygen Delivery Method Room Air 10/11/24 13:11 Oxygen Flow Rate 0 10/11/24 13:11 Pain Level 8 10/11/24 13:11 Lab/Test Results Lab/Test Results: 10/11/24 13:39 Blood Blood Culture - Pending 10/11/24 13:39 Blood Blood Culture - Pending POC- Test(urine) Positive Procedure EJ/Peripheral IV/Phlebotomy Date of Procedure: 10/11/24 Time of Procedure: 14:37 Indication: Nursing/tech could not get IV and Difficult IV access Skin Cleansed in Sterile Fashion: Yes Laterality: Right Insertion Site: Forearm Size & Type: 20 ga. Number ofAttempts(See previous attempts in note section): 1 Dressing: IV Dressing Placed Ultrasound: Used/Image Saved Estimated Blood Loss: minimal Reason for Blood Draw by Provider: RN/lab unable and other (Second blood culture drawn from different site) Obtained Bloods via: peripheral vein stick Estimated cc's Blood Obtained: 20 Procedure Tolerated: No Complications and Patient tolerated well Procedure Outcome: Successful Medical Decision Making Patient presenting to the emergency department for chief complaint of right lower leg pain discomfort. Patient states that 6 to 7 days ago she noted some redness and pain to the medial aspect of her foot. She thought nothing of it and denies any specific injury or trauma. Patient states that starting a couple days ago she noted some increased redness and some spreading of the discomfort and went to the urgent care yesterday. At the urgent care they started her on Keflex and did order an outpatient ultrasound given some calf pain which was negative but did show some lymphadenopathy. Patient has taken a total of 3 Keflex but yesterday evening she did state fever chills and continued pain and discomfort with some slight continued spread of the erythema. Patient has medical history of hepatitis C and substance abuse but is actually working on reducing Suboxone. Does state that she has missed her period and is a couple days late but last period was approximately 1 month ago she does report that she is actively trying to get . Physical exam shows findings consistent of cellulitis to right lower extremity. Did review urgent care notes yesterday and was appropriately started on Keflex and ultrasound of right lower extremity again showed lymphadenopathy but was negative for DVT. Review of vital signs show no hypotension, upper limits of normal heart rate and otherwise stable vitals. Will plan on checking labs, blood cultures, and will give a dose of Rocephin along with some IV acetaminophen for pain control. At this time I would not consider patient to have failed outpatient therapy given that she has only had 3 doses of Keflex. Reviewed patient's labs and CBC is overall unremarkable, CMP does show slight decrease in potassium at 3.4 which I discussed with patient increase of potassium rich foods, patient is and was informed of this. Given negative white count only 3 doses of Keflex and otherwise stable condition I do feel that patient is able to safely continue Keflex outpatient but was clearly instructed to return immediately for any significant worsening of condition or if she is seeing worsening symptoms tomorrow morning. Did inform attending physician that we will be present tomorrow in the ED of patient's condition and plan of care. After discussion of diagnosis and plan of care patient has no further needs, questions, or concerns and states clear understanding to return to the emergency department for any worsening symptoms. This documentation was generated using [employer] system, please disregard any oddities of phrase or misspellings. Medical Records Medical records reviewed: Yes I reviewed the patient's medical records. Medical records narrative: Urgent care results along with radiology report Lab Data Lab results reviewed: Yes I reviewed the patient's lab results. REPLACED BY [facility] All Active Problems (Updated 10/11/24 @ 16:13 by Babak Aguilera NP) Positive test (Acute) Cellulitis (Acute) Lower extremity edema (Acute) Hemorrhoid (Acute) Flu-like symptoms (Acute) Breast mass, left (Acute) Pelvic pain (Acute) Post depression (Acute) Term delivered (Acute) Suboxone maintenance treatment complicating , antepartum (Acute) Hepatitis C (Chronic) Pt. denies having this, and has tried to get it taken off your record because she says she has never had it. Antibody positive, RNA titer undetectable. BMI 40.0-44.9, adult (Acute) Difficult intravenous access (Acute) Has required multiple IV attempts with and without ultrasound in the past in arms and feet, sometimes without eventual success. Medical History Opioid type dependence, abuse Anemia affecting first Spontaneous onset of labor Encounter for induction of labor Threatened Early stage of SAB (spontaneous ) Fracture of sesamoid bone of foot, closed (~04/2019) Vasculitis Folic acid deficiency Irritable bowel syndrome denies having this dx and would like it removed from her record Hand swelling Abnormal hepatitis serology Migraine headache Cocaine abuse Anxiety with depression Fatigue Acute adjustment disorder with depressed mood Acne vulgaris Encounter for annual physical exam Depression Chronic interstitial cystitis Surgical History Status post left foot surgery Tonsillectomy Family History Mother Breast cancer Celiac disease Maternal Grandmother Dementia Parkinson disease Maternal Grandfather Dementia Niece Celiac disease Paternal Grandfather Polio Social History Smoking/Tobacco Use Status: Former Tobacco Use Quit Date: 04/02/17 Smoking risk assessment performed?: Yes Alcohol Intake: current Alcohol Intake frequency: holidays/special occasions only Alcohol type: wine Drug use: Current Sobriety Substance use type: former substance user, crack/cocaine and opiates Details: states she has not used in 2-3 years Housing: house Number of Children: 0 Current gender identity: female Do you feel safe at home: Yes Do you feel safe in your relationship?: Yes Female Reproductive History Menstrual Age of Menarche: 10 control method: pills History History 3 Para 1 Hx # Term Pregnancies 1 Multiple births 0 Hx # Pregnancies 0 Ectopic pregnancies 0 AB induced 0 Hx Number of Living Children 1 AB spontaneous 1 Past Pregnancies Del. Date GA/Weeks # Preg Succ Route Wgt Sex Labor [facility] No No 07/10/23 41 No Yes vaginal 3789.991 g Female 37hrs 24min [facility] Delivery Date: 06/14/22 Last Updated by: Estefany Castellanos CNM SAB Delivery Date: 07/10/23 Last Updated by: Hayde Esteban LPN episiotomy, midline; 2nd degree laceration; placenta sent for pathology
[2024-10-11 14:49] LABS: Abs Immature Grans 0.02 10^3/uL (0.0-0.06); HCT 36.4 % (36.0-46.0); HGB 11.9 g/dL (11.2-15.7); Immature Grans % 0.3 %; MCH 28.4 pg (27.0-33.0); MCHC 32.7 % (32.0-36.0); MCV 87 fL (80-95); MPV 11.0 fL (8.0-11.0); Platelet Count 189 10^3/uL (130-400); RBC 4.19 10^6/uL (3.93-5.22); RDW 12.7 % (11.7-14.6); RDW-SD 40.3 fL; WBC 7.23 10^3/uL (4.4-10.8)
[2024-10-11] MEDS: ACETAMINOPHEN 1,000 MG/100 ML BAG 400 MG IVPB (15:00)
[2024-10-11] MEDS: cefTRIAXone 1 GM/50 ML BAG IVPB (15:02)
[2024-10-11 15:07] LABS: ALT 44 U/L (14-59); AST 31 U/L (15-37); Albumin 3.4 g/dL (3.4-5.0); Alkaline Phosphatase 108 U/L (46-116); Anion Gap 11.0 mmol/L (3-11); BUN 12 mg/dL (7-18); Bilirubin, Total 0.6 mg/dL (0.2-1.0); CO2 25.0 mmol/L (21.0-32.0); Calcium 8.9 mg/dL (8.5-10.1); Chloride 103 mmol/L (98-107); Estimated GFR 116.31 (mL/min/1.73m2); Glucose 103 mg/dL (74-106); Magnesium 1.9 mg/dL (1.8-2.4); Potassium 3.4 mmol/L (3.5-5.1); Sodium 139 mmol/L (136-145); Total Protein 7.4 g/dL (6.4-8.2)
[2024-10-11] MEDS: Normal Saline 1,000 ML 1000 ML IV (15:51)
[2024-10-11 16:02] LABS: HCG Qual (Urine) Positive
== END 2024-10-11 17:40 | disposition home or self-care (01) ==
PROVIDERS: Emergency Provider Nurse Practitioner Family; PCP Family Medicine
DX: L03.115 Cellulitis of right lower limb (principal); Z32.01 Encounter for pregnancy test, result positive
CPT/HCPCS: 99284 ×2; 36415; 81025; 76942; 80053; 87040; 96361; 96365; 96368; 83735; 85025; J0131; J0696

== ENCOUNTER 2024-12-12 03:29 | Outpatient (CLI) | payer BC, SELFPAY ==
[2024-12-12 16:57] LABS: Abs Immature Grans 0.02 10^3/uL (0.0-0.06); HCT 34.7 % (36.0-46.0); HGB 11.6 g/dL (11.2-15.7); Immature Grans % 0.2 %; MCH 28.9 pg (27.0-33.0); MCHC 33.4 % (32.0-36.0); MCV 86 fL (80-95); MPV 10.9 fL (8.0-11.0); Platelet Count 211 10^3/uL (130-400); RBC 4.02 10^6/uL (3.93-5.22); RDW 12.9 % (11.7-14.6); RDW-SD 40.6 fL; WBC 8.13 10^3/uL (4.4-10.8)
[2024-12-12 17:46] LABS: Hemoglobin A1C 5.1 % (<5.7)
[2024-12-15 08:59] LABS: HIV-1/2 Ag & Ab Screen Negative (Negative)
[2024-12-15 11:53] LABS: Rubella IgG Ab (UVM) Positive (See Note)
[2024-12-15 14:27] LABS: Hepatitis C Ab w Rflx HCV PCR Reactive (Negative)
[2024-12-16 21:26] LABS: Syphilis IgG w/Reflex Nonreactive (Nonreactive)
== END 2024-12-12 03:30 | disposition home or self-care (01) ==
LOC: LBO 03:30
PROVIDERS: PCP Family Medicine; Visit Provider Advanced Practice Midwife
DX: Z34.91 Encounter for supervision of normal pregnancy, unspecified, first trimester (principal)
CPT/HCPCS: 36415; 86787; 86803; 86850; 86900; 86901; 87340; 87389; 87522; 83036; 85025; 86762; 86780

== ENCOUNTER 2024-12-12 19:38 | Outpatient (REF) | payer BC, SELFPAY ==
[2024-12-15 11:20] LABS: Chlamydia Result Negative (Negative); GC Result Negative (Negative)
== END 2024-12-12 19:39 | disposition home or self-care (01) ==
LOC: LBN 19:38
PROVIDERS: PCP Family Medicine; Visit Provider Advanced Practice Midwife
DX: Z34.91 Encounter for supervision of normal pregnancy, unspecified, first trimester
CPT/HCPCS: 87491; 87591; 87086

== ENCOUNTER 2025-01-22 15:25 | Outpatient (REF) | payer BC, SELFPAY | END 2025-01-22 15:26 | disposition home or self-care (01) | LOC: LBN 15:25 | PROVIDERS: PCP Family Medicine; Visit Provider Advanced Practice Midwife | DX: Z34.91 Encounter for supervision of normal pregnancy, unspecified, first trimester (principal) | CPT/HCPCS: 87077; 87086 ==

== ENCOUNTER 2025-01-23 21:04 | Outpatient (REF) | payer BC, SELFPAY | END 2025-01-23 21:05 | disposition home or self-care (01) | LOC: NCHCN 21:04 | PROVIDERS: PCP Family Medicine; Visit Provider Family Medicine | DX: N76.0 Acute vaginitis (principal); B68.9 Taeniasis, unspecified | CPT/HCPCS: 87480; 87510; 87660 ==

== ENCOUNTER 2025-02-20 15:36 | Outpatient (REF) | payer BC, SELFPAY | END 2025-02-20 15:37 | disposition home or self-care (01) | LOC: LBN 15:36 | PROVIDERS: PCP Family Medicine; Visit Provider Advanced Practice Midwife | DX: R30.0 Dysuria (principal); O23.592 Infection of other part of genital tract in pregnancy, second trimester; B96.89 Other specified bacterial agents as the cause of diseases classified elsewhere | CPT/HCPCS: 87086; 87480; 87510; 87660 ==

== ENCOUNTER 2025-03-20 00:52 | Outpatient (CLI) | payer BC, SELFPAY ==
[2025-03-20 15:53] LABS: HCT 34.0 % (36.0-46.0); HGB 11.3 g/dL (11.2-15.7); MCH 29.2 pg (27.0-33.0); MCHC 33.2 % (32.0-36.0); MCV 88 fL (80-95); MPV 11.1 fL (8.0-11.0); Platelet Count 209 10^3/uL (130-400); RBC 3.87 10^6/uL (3.93-5.22); RDW 13.1 % (11.7-14.6); RDW-SD 41.8 fL; WBC 7.68 10^3/uL (4.4-10.8)
[2025-03-20 16:24] LABS: Glucose,1 Hr (Glucola) 138 mg/dL (80-140)
== END 2025-03-20 00:53 | disposition home or self-care (01) ==
LOC: LBO 00:52
PROVIDERS: PCP Family Medicine; Visit Provider Advanced Practice Midwife
DX: Z34.92 Encounter for supervision of normal pregnancy, unspecified, second trimester (principal); B19.20 Unspecified viral hepatitis C without hepatic coma
CPT/HCPCS: 36415; 82950; 85027

== ENCOUNTER 2025-03-20 17:39 | Outpatient (REF) | payer BC, SELFPAY ==
[2025-03-20 18:19] LABS: Cannabinoids THC Negative (Negative); Fentanyl Scr w/Rflx to Conf, U Negative (Negative)
== END 2025-03-20 17:40 | disposition home or self-care (01) ==
LOC: LBN 17:39
PROVIDERS: PCP Family Medicine; Visit Provider Nurse Practitioner Obstetrics & Gynecology
DX: B19.20 Unspecified viral hepatitis C without hepatic coma (principal); O99.320 Drug use complicating pregnancy, unspecified trimester; F11.20 Opioid dependence, uncomplicated
CPT/HCPCS: 80307; 87086